=== PATIENT | male | born 1965 | race Caucasian/White ===

== ENCOUNTER 2019-10-27 13:18 | Emergency (ER) | payer MEDICAID, SELFPAY ==
[2019-10-27 13:28] VITALS: BP 123/87; PULSE 80; RESP 16; TEMP 36.7; O2SAT 97; BMI 24.4
--- NOTE | 2019-10-27 14:18 | W.ED.DENTAL ---
HPI - Dental/Oral General: Chief complaint: Dental/Oral Stated complaint: dental pain, facial and throat swelling Time Seen by Provider: 10/27/19 13:51 History of Present Illness: HPI Narrative: Patient seen by Dr. Reed yesterday for dental abscess and placed on Augmentin. Patient that his face was more swell this morning woke up decided come in says her throat hurts too. MD Complaint: tooth pain Teeth map: 1. Abscess #1920 area Onset (ago): day(s) Duration: constant Severity: moderate Severity scale (1-10): 4 Context: history of dental caries and poor dental care Associated symptoms: Reports gum swelling; Denies fever(s) Review of Systems Const: Denies: fever(s), chills or body aches Eyes: Denies: change in vision or blurry vision ENMT: Reports: throat pain, mouth pain and dental pain; Denies: nasal congestion Card: Denies: chest pain or dyspnea on exertion Resp: Denies: dyspnea, productive cough or non-productive cough GI: Denies: abdominal pain, nausea or vomiting : Denies: difficulty urinating Musc: Denies: extremity pain Skin/Breast: Denies: rash Neuro: Denies: headache(s) Psych: Denies: anxiety or depression Raymundo/Lymph: Denies: easy bruising PFSH ED PFSH: Medical History (Updated 10/27/19 @ 14:09 by MIMI Read) Cervical disc disease Chronic hepatitis C Chronic migraine Depression Spondylolisthesis of cervical region Surgical History H/O hernia repair History of cholecystectomy Family History Mother Diabetes Father Heart disease Social History (Updated 10/27/19 @ 13:35 by Jewel Mckay RN) Smoking and tobacco status: light tobacco smoker cigarettes Alcohol intake: never Substance/Drug Use: never Lives independently: Yes Household members: none Marital status: / Current occupational status: unemployed History of recent travel: No Physical Exam Const: COMMON NORMALS: no acute distress, average body habitus and patient oriented x3 HENMT: COMMON NORMALS: normocephalic HEAD & SCALP: normal to inspection and normocephalic FACE & SINUS: normal facial exam TEETH & GINGIVA IMAGES: 1. 1920s were dental abscess area is he has some mild swelling to the gum extending down around to the front he has mild lymphadenopathy to the anterior neck area throat looks normal swelling he denies bad is the picture that he showed me yesterday that he had took. Eye: COMMON NORMALS: conjunctivae normal GENERAL EYE: appearance normal, both eyes and all related structures CONJUNCTIVA: Yes conjunctivae normal Neck/C-Spine: COMMON NORMALS: no JVD Chest: COMMONS NORMALS: normal inspection of the chest Resp: COMMON NORMALS: normal respiratory effort and clear to auscultation bilaterally AUSCULTATION: clear to auscultation bilaterally Cardio: COMMON NORMALS: no JVD, regular rate and regular rhythm RATE: regular rate RHYTHM: regular rhythm GI: COMMON NORMALS: Normal to inspection, nondistended, normoactive bowel sounds present Extremity: COMMON NORMALS: normal to inspection and full ROM Neuro: COMMON NORMALS: patient oriented x3 Course Vital Signs: Vital signs: Vital Signs Temperature 98.0 F 10/27/19 13:28 Pulse Rate 80 10/27/19 13:28 Respiratory Rate 16 10/27/19 13:28 Blood Pressure 123/87 10/27/19 13:28 Pulse Oximetry 97 10/27/19 13:28 Discharge Plan Discharge Patient Disposition: Home Clinical Impression: Dental abscess Condition: Stable Prescriptions: New clindamycin HCl 300 mg capsule 300 mg PO TID 7 Days Qty: 21 RF: 0 tramadol 50 mg tablet 50 mg PO Q6H PRN (Reason: pain) Qty: 10 RF: 0 Peridex 0.12 % mouthwash 15 ml BUCCAL BID Qty: 118 RF: 0 No Action gabapentin 600 mg tablet 600 mg PO DAILY RF: 0 naproxen sodium [Aleve] 220 mg capsule 220 mg PO BID PRNRF: 0 alprazolam 2 mg tablet 2 mg PO TID PRN (Reason: anxiety) RF: 0 ibuprofen 800 mg tablet 800 mg PO TID PRNRF: 0 acetaminophen [Tylenol] 325 mg capsule 650 mg PO QID PRNRF: 0 Discharge Orders: Discharge Order (Routine); Ordered 10/27/19 Ordered By: Jony Penn Referrals: Timmy Sorto DO [Primary Care Provider] - Discharge Diet: Usual diet Discharge Activity: Resume usual activity Patient Instructions: Dental Abscess (ED) Activity Restrictions/Additional Instructions: Follow-up with medical provider as directed. Take medications as prescribed. Return to the ER or your medical provider if condition worsens. Please read and understand discharge instructions. If any questions ask please. Follow-up dentist soon as possible Coding Level of Care Code ED Service Coordinator [facility] for [facility]
[2019-10-27] MEDS: cefTRIAXone 1,000 mg SDV 1000 MG IM (14:51)
[2019-10-27 14:57] VITALS: BP 125/85; PULSE 71; RESP 16; O2SAT 97
[2019-10-27 15:10] VITALS: BP 115/93; PULSE 97; RESP 18; O2SAT 97
== END 2019-10-27 15:13 | disposition home or self-care (01) ==
PROVIDERS: Emergency Provider Nurse Practitioner Family; PCP Family Medicine
DX: K04.7 Periapical abscess without sinus (principal); Z86.19 Personal history of other infectious and parasitic diseases; F17.210 Nicotine dependence, cigarettes, uncomplicated
CPT/HCPCS: 12345; 96372; 99281; 99282; J0696

== ENCOUNTER 2019-11-10 11:48 | Emergency (ER) | payer MEDICAID, SELFPAY ==
[2019-11-10 11:57] VITALS: BMI 24.4
[2019-11-10 12:03] VITALS: BP 137/98; PULSE 115; RESP 16; TEMP 36.9; O2SAT 95
--- NOTE | 2019-11-10 12:04 | XR_ITS ---
WS: [id number] PROCEDURE: XR chest 2V* [id number] CLINICAL INFORMATION: fever COMPARISON: December 08, 2018 FINDINGS: Heart: Normal cardiac silhouette. Lungs: Lungs are clear. No consolidation or pleural fluid. Calcified granuloma left lower lobe. Bones: Normal visualized bony structures. Cholecystectomy clips. XR/XR chest 2V* [id number] IMPRESSION: Normal chest
--- NOTE | 2019-11-10 12:04 | W.ED.GENADLT ---
HPI - General Adult General: Chief complaint: General Medical Stated complaint: FEVER/ACHES/D/ABD PAIN Time Seen by Provider: 11/10/19 11:58 Source: patient Mode of arrival: ambulatory Limitations: no limitations History of Present Illness: HPI narrative: 53-year-old male who states he had a dental abscess drained little over a week ago. He states that since then he is just had some generalized body aches with low-grade fevers and nausea. States that his whole body hurts. He denies any vomiting or diarrhea. He denies any worsening or improving factors. Patient states he has had a slight cough. Associated symptoms: Reports nausea; Deny chest pain, dyspnea, headache(s) or rash Review of Systems Const: Denies: fever(s), chills, body aches or change in appetite Eyes: Denies: blurry vision or eye discomfort ENMT: Denies: throat pain or dental pain Card: Denies: chest pain Resp: Denies: dyspnea GI: Reports: nausea : Denies: dysuria Musc: Reports: extremity pain Skin/Breast: Denies: rash Neuro: Denies: headache(s) Psych: Denies: depression Raymundo/Lymph: Denies: easy bruising All/Imm: Denies: urticaria PFSH ED PFSH: Medical History (Updated 11/10/19 @ 14:03 by Dago Boykin MD) Cervical disc disease Chronic hepatitis C Chronic migraine Depression Spondylolisthesis of cervical region Surgical History H/O hernia repair History of cholecystectomy Family History Mother Diabetes Father Heart disease Social History (Updated 10/27/19 @ 13:35 by Jewel Mckay RN) Smoking and tobacco status: light tobacco smoker cigarettes Alcohol intake: never Lives independently: Yes Household members: none Marital status: / Current occupational status: unemployed History of recent travel: No Physical Exam Const: COMMON NORMALS: no acute distress, patient oriented x3 and healthy appearing HENMT: COMMON NORMALS: normocephalic and atraumatic HEAD & SCALP: normocephalic and atraumatic Eye: COMMON NORMALS: Equal, round and reactive pupils present and EOMs intact bilaterally PUPIL: Yes Equal, round and reactive pupils present Neck/C-Spine: COMMON NORMALS: full ROM and supple Chest: COMMONS NORMALS: normal inspection of the chest and normal palpation of entire chest wall Resp: COMMON NORMALS: normal respiratory effort, No retractions, No use of accessory muscles and clear to auscultation bilaterally AUSCULTATION: clear to auscultation bilaterally Cardio: COMMON NORMALS: regular rate, regular rhythm and No murmurs present (Cardio) RATE: regular rate RHYTHM: regular rhythm GI: COMMON NORMALS: Normal to inspection, nondistended, normoactive bowel sounds present, Soft to palpation, non-tender and no masses PALPATION: Yes Soft to palpation Extremity: COMMON NORMALS: normal to inspection and full ROM Neuro: COMMON NORMALS: patient oriented x3, moves all extremities and no focal motor deficits Psych: COMMON NORMALS: mental status grossly normal, Normal thought process present and cooperative THOUGHT PROCESS: Normal thought process present Skin: COMMON NORMALS: no rashes or lesions noted and no wounds GENERAL SKIN EXAM: no rashes or lesions noted Course Vital Signs: Vital signs: Vital Signs Temperature 98.5 F 11/10/19 12:03 Pulse Rate 108 H 11/10/19 12:47 Respiratory Rate 19 H 11/10/19 12:47 Blood Pressure 133/94 11/10/19 12:47 Pulse Oximetry 96 11/10/19 12:47 MDM - General Adult MDM Narrative: Medical decision making narrative: Patient presents here with an infection colitis. Patient is well-appearing here and abdominal exam is benign. Patient is stable for discharge will place him on Cipro and Flagyl pain meds. He is to follow-up his primary doctor in 5 to 7 days return if worsening. Lab Data: Labs: Lab Results 11/10/19 11/10/19 Range/Units 12:16 12:16 WBC 14.4 H (4.0-10.0) 10^3/ uL RBC 5.93 H (4.1-5.3) 10^6/u L Hgb 18.7 H (11.7-16.6) g/dL Hct 54.7 H (42.0-52.0) % MCV 92.2 (80-94) fL MCH 31.5 (28.0-34.0) pg MCHC 34.2 (30.0-36.0) g/dL RDW 12.0 L (12.1-15.1) % Plt Count 261 (130-400) 10^3/c mm MPV 9.6 (7.4-10.4) fL Neut % (Auto) 80.9 % Lymph % (Auto) 9.5 % [place] % (Auto) 8.5 % Eos % (Auto) 0.5 % Baso % (Auto) 0.3 % Neut # (Auto) 11.66 H (1.8-7.7) 10^3/u L Lymph # (Auto) 1.4 (0.8-4.8) 10^3/u L [place] # (Auto) 1.2 H (0.2-0.9) 10^3/u L Eos # (Auto) 0.1 (0.0-0.8) 10^3/u L Baso # (Auto) 0.0 (0.0-0.1) 10^3/u L Nucleated RBC % (a uto) 0 % Nucleated RBCs # 0.0 /100WBC Sodium 137 (136-145) mmol/L Potassium 4.2 (3.5-5.1) mmol/L Chloride 103 (98-107) mmol/L Carbon Dioxide 24 (22-29) mmol/L Anion Gap 14.2 (5-19) BUN 11 (6-20) mg/dL Creatinine 0.8 (0.7-1.2) mg/dL GFR Calculation 101.9 (90-130) mL/min Glucose 112 (65-115) mg/dL Calculated Osmolal ity 281 L (285-295) mOsm/k g Calcium 9.0 (8.5-10.5) mg/dL Total Bilirubin 0.5 (0.15-1.2) mg/dL AST 21 (0-40) U/L ALT 27 (0-41) U/L Alkaline Phosphata se 84 (40-130) IU/L Total Protein 8.3 (6.6-8.7) g/dL Albumin 4.5 (3.5-5.2) g/dL Globulin 3.8 (1.3-4.6) g/dL Lipase 31 (13-60) U/L Imaging Data^: CT Abd/Pel: Radiologist's impression: [address] [address] [address] Scan Report Signed Patient: Guille Russ Unit #: [id number] : 1965 Age/Sex: 53 / M ADM Date: 11/10/19 Loc: ER Room/Bed: Attending Dr: Ordering Provider/Ordering MD: Dago Boykin MD Date of Service: 11/10/19 Procedure(s): CT chest abd pel w con* Accession Number(s): [id number] Report Number: [id number] PROCEDURE INFORMATION: Exam: CT Chest With Contrast Exam date and time: 11/10/2019 12:45 PM Age: 53 years old Clinical indication: Abdominal pain; Generalized; Chest pain; Type not specified; Prior surgery; Surgery type: Gb, hernia TECHNIQUE: Imaging protocol: Computed tomography of the chest with intravenous contrast. Radiation optimization: All CT scans at this facility use at least one of these dose optimization techniques: automated exposure control; mA and/or kV adjustment per patient size (includes targeted exams where dose is matched to clinical indication); or iterative reconstruction. Contrast material: OMNI 300; Contrast volume: 95 ml; Contrast route: INTRAVENOUS (IV); COMPARISON: CT abdomen pelvis w con* [id number] 09/09/2017 3:36 PM RADIATION DOSE METRICS: Total DLP (mGy-cm): 1243.05 FINDINGS: Lungs: Unremarkable. No consolidation. No masses. Pleural space: Unremarkable. No pneumothorax. No pleural effusion. Heart: Unremarkable. No cardiomegaly. No pericardial effusion. Aorta: Unremarkable. No aortic aneurysm. Lymph nodes: Unremarkable. No enlarged lymph nodes. Bones/joints: Degenerative change is identified in the spine. There is no evidence for acute fracture or malalignment. Soft tissues: Unremarkable. IMPRESSION: There are no acute concerning abnormalities. PROCEDURE INFORMATION: Exam: CT Abdomen And Pelvis With Contrast Exam date and time: 11/10/2019 12:45 PM Age: 53 years old Clinical indication: Abdominal pain; Generalized; Chest pain; Type not specified; Prior surgery; Surgery type: Gb, hernia TECHNIQUE: Imaging protocol: Computed tomography of the abdomen and pelvis with intravenous contrast. Radiation optimization: All CT scans at this facility use at least one of these dose optimization techniques: automated exposure control; mA and/or kV adjustment per patient size (includes targeted exams where dose is matched to clinical indication); or iterative reconstruction. Contrast material: OMNI 300; Contrast volume: 95 ml; Contrast route: INTRAVENOUS (IV); COMPARISON: CT abdomen pelvis w con* [id number] 09/09/2017 3:36 PM RADIATION DOSE METRICS: Total DLP (mGy-cm): 1243.05 FINDINGS: Liver: Normal. No mass. Gallbladder and bile ducts: There has been a cholecystectomy. Pancreas: Normal. No ductal dilation. Spleen: Normal. No splenomegaly. Adrenals: Normal. No mass. Kidneys and ureters: Normal. No hydronephrosis. Stomach and bowel: There is wall thickening of the ascending and hepatic flexures of the colon and also of the distal descending and sigmoid colon. There are colon diverticula. No bowel obstruction. Appendix: No evidence of appendicitis. Intraperitoneal space: Unremarkable. No free air. No significant fluid collection. Vasculature: Unremarkable. No abdominal aortic aneurysm. Lymph nodes: Unremarkable. No enlarged lymph nodes. Bladder: Unremarkable as visualized. Reproductive: Unremarkable as visualized. Bones/joints: Degenerative change is identified in the spine. There is no evidence for acute fracture or malalignment. Soft tissues: Unremarkable. CT/CT chest abd pel w con* IMPRESSION: There is multifocal colitis in the ascending, hepatic flexure, distal descending and sigmoid colons. Some of this may represent diverticulitis. Follow-up is recommended to ensure expected resolution. Discharge Plan Discharge Patient Disposition: Home Clinical Impression: Colitis Condition: Stable Prescriptions: [place] 5-325 mg tablet 1 tab PO Q6H PRN (Reason: pain) Qty: 14 RF: 0 ondansetron 4 mg tablet,disintegrating 4 mg PO Q6H PRN (Reason: nausea and vomiting) Qty: 14 RF: 0 Cipro 500 mg tablet 500 mg PO BID Qty: 20 RF: 0 Flagyl 500 mg tablet 500 mg PO TID Qty: 30 RF: 0 No Action gabapentin 600 mg tablet 600 mg PO BID RF: 0 naproxen sodium [Aleve] 220 mg capsule 220 mg PO BID PRN (Reason: Pain) RF: 0 alprazolam 2 mg tablet 2 mg PO QID PRN (Reason: anxiety) RF: 0 ibuprofen 800 mg tablet 800 mg PO PRN RF: 0 tramadol 50 mg tablet 50 mg PO Q6H PRN (Reason: pain) Qty: 10 RF: 0 amoxicillin 500 mg Capsule 500 mg PO TID RF: 0 aspirin 325 mg Tablet 325 mg PO PRN RF: 0 Tylenol Extra Strength 500 mg Tablet 1,000 mg PO PRN RF: 0 dicyclomine 10 mg Capsule 10 mg PO QID PRN (Reason: unknown) RF: 0 Augmentin 875-125 mg Tablet 1 tab PO BID RF: 0 Pepcid AC 1 tab PO PRN RF: 0 Discharge Orders: Discharge Order (Routine); Ordered 11/10/19 Ordered By: Dago Boykin Referrals: Timmy Sorto, [Primary Care Provider] - 4-7 days Discharge Diet: Advance as tolerated Discharge Activity: Resume usual activity Patient Instructions: Infectious Colitis (ED) Coding Level of Care Code ED Entertainment Musician for [facility] Fwluis eduardo Exam Comprehensive
[2019-11-10 12:26] LABS: Basophils % 0.3 %; Eosinophils # 0.1 10^3/uL (0.0-0.8); Eosinophils % 0.5 %; Hematocrit 54.7 % (42.0-52.0); Hemoglobin 18.7 g/dL (11.7-16.6); Lymphocytes # 1.4 10^3/uL (0.8-4.8); Lymphocytes % 9.5 %; Mean Corpuscular HGB Conc 34.2 g/dL (30.0-36.0); Mean Corpuscular Hemoglobin 31.5 pg (28.0-34.0); Mean Corpuscular Volume 92.2 fL (80-94); Mean Platelet Volume 9.6 fL (7.4-10.4); Monocytes # 1.2 10^3/uL (0.2-0.9); Monocytes % 8.5 %; Neutrophils # 11.66 10^3/uL (1.8-7.7); Neutrophils % 80.9 %; Nucleated Red Blood Cells % 0 %; Platelet Count 261 10^3/cmm (130-400); Red Blood Count 5.93 10^6/uL (4.1-5.3); White Blood Count 14.4 10^3/uL (4.0-10.0)
[2019-11-10 12:37] VITALS: RESP 18; O2SAT 96
[2019-11-10] MEDS: morphine 4 mg/mL SDV 1 mL IVP (12:37)
[2019-11-10] MEDS: ondansetron 2 mg/ML SDV 2 mL 4 MG IVP (12:41)
--- NOTE | 2019-11-10 12:42 | CTR_ITS ---
PROCEDURE INFORMATION: Exam: CT Chest With Contrast Exam date and time: 11/10/2019 12:45 PM Age: 53 years old Clinical indication: Abdominal pain; Generalized; Chest pain; Type not specified; Prior surgery; Surgery type: Gb, hernia TECHNIQUE: Imaging protocol: Computed tomography of the chest with intravenous contrast. Radiation optimization: All CT scans at this facility use at least one of these dose optimization techniques: automated exposure control; mA and/or kV adjustment per patient size (includes targeted exams where dose is matched to clinical indication); or iterative reconstruction. Contrast material: OMNI 300; Contrast volume: 95 ml; Contrast route: INTRAVENOUS (IV); COMPARISON: CT abdomen pelvis w con* [id number] 09/09/2017 3:36 PM RADIATION DOSE METRICS: Total DLP (mGy-cm): 1243.05 FINDINGS: Lungs: Unremarkable. No consolidation. No masses. Pleural space: Unremarkable. No pneumothorax. No pleural effusion. Heart: Unremarkable. No cardiomegaly. No pericardial effusion. Aorta: Unremarkable. No aortic aneurysm. Lymph nodes: Unremarkable. No enlarged lymph nodes. Bones/joints: Degenerative change is identified in the spine. There is no evidence for acute fracture or malalignment. Soft tissues: Unremarkable. IMPRESSION: There are no acute concerning abnormalities. PROCEDURE INFORMATION: Exam: CT Abdomen And Pelvis With Contrast Exam date and time: 11/10/2019 12:45 PM Age: 53 years old Clinical indication: Abdominal pain; Generalized; Chest pain; Type not specified; Prior surgery; Surgery type: Gb, hernia TECHNIQUE: Imaging protocol: Computed tomography of the abdomen and pelvis with intravenous contrast. Radiation optimization: All CT scans at this facility use at least one of these dose optimization techniques: automated exposure control; mA and/or kV adjustment per patient size (includes targeted exams where dose is matched to clinical indication); or iterative reconstruction. Contrast material: OMNI 300; Contrast volume: 95 ml; Contrast route: INTRAVENOUS (IV); COMPARISON: CT abdomen pelvis w con* [id number] 09/09/2017 3:36 PM RADIATION DOSE METRICS: Total DLP (mGy-cm): 1243.05 FINDINGS: Liver: Normal. No mass. Gallbladder and bile ducts: There has been a cholecystectomy. Pancreas: Normal. No ductal dilation. Spleen: Normal. No splenomegaly. Adrenals: Normal. No mass. Kidneys and ureters: Normal. No hydronephrosis. Stomach and bowel: There is wall thickening of the ascending and hepatic flexures of the colon and also of the distal descending and sigmoid colon. There are colon diverticula. No bowel obstruction. Appendix: No evidence of appendicitis. Intraperitoneal space: Unremarkable. No free air. No significant fluid collection. Vasculature: Unremarkable. No abdominal aortic aneurysm. Lymph nodes: Unremarkable. No enlarged lymph nodes. Bladder: Unremarkable as visualized. Reproductive: Unremarkable as visualized. Bones/joints: Degenerative change is identified in the spine. There is no evidence for acute fracture or malalignment. Soft tissues: Unremarkable. CT/CT chest abd pel w con* IMPRESSION: There is multifocal colitis in the ascending, hepatic flexure, distal descending and sigmoid colons. Some of this may represent diverticulitis. Follow-up is recommended to ensure expected resolution. Radiation Dose CTDIVOL = (mGy): DLP = 1243.05~1243.05 (mGy-cm)
[2019-11-10 12:44] LABS: Alanine Aminotransferase 27 U/L (0-41); Albumin Level 4.5 g/dL (3.5-5.2); Alkaline Phosphatase 84 IU/L (40-130); Anion Gap 14.2 (5-19); Aspartate Amino Transferase 21 U/L (0-40); Blood Urea Nitrogen 11 mg/dL (6-20); Carbon Dioxide 24 mmol/L (22-29); Chloride 103 mmol/L (98-107); Globulin 3.8 g/dL (1.3-4.6); Glomerular Filtration Rate 101.9 mL/min (90-130); Glucose 112 mg/dL (65-115); Lipase 31 U/L (13-60); Osmolality Calculated 281 mOsm/kg (285-295); Potassium 4.2 mmol/L (3.5-5.1); Sodium 137 mmol/L (136-145); Total Bilirubin 0.5 mg/dL (0.15-1.2); Total Protein 8.3 g/dL (6.6-8.7)
[2019-11-10] MEDS: sodium chloride 0.9% 1,000 ML 999 ML IV (12:44)
[2019-11-10 12:47] VITALS: BP 133/94; PULSE 108; RESP 19; O2SAT 96
[2019-11-10] MEDS: iohexol 300 mg/mL 100 mL Btl 95 ML IV (13:08)
[2019-11-10 14:04] VITALS: BP 130/87; PULSE 104; PULSE 112; RESP 19; O2SAT 100; O2SAT 99
[2019-11-10 14:15] VITALS: BP 130/87; PULSE 99; RESP 18; O2SAT 93
--- NOTE | 2019-11-10 14:19 | PC.NURSE ---
Patient discharged before hydrocodone order was seen by nurse. Upon discharge patient stated pain had decreased.
== END 2019-11-10 14:15 | disposition home or self-care (01) ==
PROVIDERS: Emergency Provider Emergency Medicine; PCP Family Medicine
DX: K52.9 Noninfective gastroenteritis and colitis, unspecified (principal); Z79.82 Long term (current) use of aspirin; Z86.19 Personal history of other infectious and parasitic diseases; F17.210 Nicotine dependence, cigarettes, uncomplicated
CPT/HCPCS: 12345; 71046; 71260; 74177; 80053; 83690; 85025; 96361; 96374; 96375; 99282; 99283; J2270; J2405; J7030; Q9967

== ENCOUNTER → 2019-11-22 08:27 | Outpatient (BNVA) | payer MEDICAID, SELFPAY | PROVIDERS: PCP Family Medicine; Referring Provider Specialist; Visit Provider Anesthesiology Pain Medicine | DX: M54.41 Lumbago with sciatica, right side (principal); M54.9 Dorsalgia, unspecified; M54.2 Cervicalgia; F17.210 Nicotine dependence, cigarettes, uncomplicated; Z79.891 Long term (current) use of opiate analgesic | CPT/HCPCS: 99205 ==

== ENCOUNTER → 2019-12-27 13:52 | Outpatient (BNVA) | payer MEDICAID, SELFPAY | PROVIDERS: PCP Family Medicine; Visit Provider Anesthesiology Pain Medicine | DX: M47.816 Spondylosis without myelopathy or radiculopathy, lumbar region (principal); M54.9 Dorsalgia, unspecified; F17.210 Nicotine dependence, cigarettes, uncomplicated; Z79.891 Long term (current) use of opiate analgesic | CPT/HCPCS: 64493; 64494; 64495; J3490 ==

== ENCOUNTER → 2020-01-10 09:56 | Outpatient (BNVA) | payer MEDICAID, SELFPAY | PROVIDERS: PCP Family Medicine; Visit Provider Anesthesiology Pain Medicine | DX: M51.16 Intervertebral disc disorders with radiculopathy, lumbar region (principal); M47.816 Spondylosis without myelopathy or radiculopathy, lumbar region; M54.9 Dorsalgia, unspecified; M50.90 Cervical disc disorder, unspecified, unspecified cervical region; M47.812 Spondylosis without myelopathy or radiculopathy, cervical region; F17.210 Nicotine dependence, cigarettes, uncomplicated | CPT/HCPCS: 99213 ==

== ENCOUNTER → 2020-01-11 11:02 | Outpatient (BNVA) | payer MEDICAID, SELFPAY | PROVIDERS: PCP Family Medicine; Visit Provider Licensed Practical Nurse | DX: M50.90 Cervical disc disorder, unspecified, unspecified cervical region (principal); M43.12 Spondylolisthesis, cervical region; M51.16 Intervertebral disc disorders with radiculopathy, lumbar region; F17.210 Nicotine dependence, cigarettes, uncomplicated | CPT/HCPCS: 99213 ==

== ENCOUNTER → 2020-01-26 09:51 | Outpatient (BNVA) | payer MEDICAID, SELFPAY | PROVIDERS: PCP Family Medicine; Visit Provider Licensed Practical Nurse | DX: M43.12 Spondylolisthesis, cervical region (principal); M50.90 Cervical disc disorder, unspecified, unspecified cervical region; M51.16 Intervertebral disc disorders with radiculopathy, lumbar region; F17.210 Nicotine dependence, cigarettes, uncomplicated | CPT/HCPCS: 99214 ==

== ENCOUNTER 2020-02-15 13:30 | Outpatient (CLI) | payer MEDICAID, SELFPAY ==
--- NOTE | 2020-02-15 16:00 | MR_ITS ---
WS: [id number] MRI CERVICAL SPINE HISTORY: M43.12 - Spondylolisthesis, cervical region COMPARISON: 02/17/2019 Less than 2 mm retrolisthesis of C3. No fracture or marrow edema. Signal within the cervical cord is normal. Visualized posterior fossa is unremarkable. Craniocervical junction, C1 and C2 relationship, odontoid process and soft tissues are normal. C2-C3: Normal. C3-C4: Mild osteophytic ridging and central disc protrusion. No stenosis. C4-C5: Mild osteophytic ridging and central disc protrusion without stenosis. C5-C6: Shallow central disc protrusion without stenosis. C6-C7: Minimal osteophytic ridging with a central annular fissure and disc protrusion. No stenosis. C7-T1: Mild osteophytic ridging. Facet joint arthritis on the RIGHT encroaching into the posterior la teral thecal sac. Slightly greater facet joint arthritis on the RIGHT with effacement of the CSF. Paraspinal soft tissue are normal. MR/MR cervical spin wo con* [id number] IMPRESSION: 1. No significant central stenosis. No large disc protrusions. 2. Mild facet joint arthritis encroaching into the posterior lateral thecal sa c causing mild foraminal narrowing at C7-T1, greatest on the RIGHT. 3. Shallow disc protrusions and osteophytes from C3-4 to C6-7. No high-grade s tenosis.
--- NOTE | 2020-02-15 16:45 | MR_ITS ---
WS: [id number] MRI LUMBAR SPINE NONCONTRAST HISTORY: M51.16 - Intervertebral disc disorders with radiculopathy, lumbar region COMPARISON: 02/17/2019. TECHNIQUE: Sagittal and axial multisequence imaging is submitted. Same vertebral body numbering pattern as on the prior study of 02/17/2019 will be used today. Normal posterior lumbar alignment. No marrow edema or fractures. Disc spaces and vertebral body heights are well-preserved. Mild disc space narrowing and desiccation at L2-3. Conus terminates normally at L1. L1-L2: Normal. L2-L3: Normal. L3-L4: Again noted is a shallow RIGHT foraminal disc protrusion with minimal contact on the L3 nerve root in the foramen. Mild narrowing of the RIGHT foramen. L4-L5: Moderate size central disc protrusion with annular fissure causing mild contact and minimal di splacement of the L5 nerve roots. Very similar to the prior examination. Mild narrowing of the centra l canal and subarticular recesses bilaterally similar to the prior study. L5-S1: Broad-based annular disc bulging with a very tiny central disc protrusion. Small disc osteophy te contact and annular fissure in the far lateral LEFT foramen. Subcentimeter LEFT renal cyst. MR/MR lumbar spine wo con* [id number] IMPRESSION: 1. Moderate size central disc protrusion with annular tear at L4-5 causing mil d central and bilateral subarticular recess narrowing. Similar to the prior deb dy. Disc does appear to contact the L5 nerve roots bilaterally. 2. Shallow RIGHT foraminal disc protrusion at L3-4 contacting the L3 nerve horacio t. 3. Mild LEFT foraminal narrowing at L5-S1 due to disc osteophyte disease.
== END 2020-02-15 13:31 | disposition home or self-care (01) ==
LOC: RADSHAW 13:32
PROVIDERS: PCP Family Medicine; Visit Provider Licensed Practical Nurse
DX: M51.16 Intervertebral disc disorders with radiculopathy, lumbar region (principal); M43.12 Spondylolisthesis, cervical region; M51.26 Other intervertebral disc displacement, lumbar region; M25.78 Osteophyte, vertebrae
CPT/HCPCS: 72141; 72148

== ENCOUNTER → 2020-02-16 14:30 | Outpatient (BNVA) | payer MEDICAID, SELFPAY | PROVIDERS: PCP Family Medicine; Visit Provider Anesthesiology Pain Medicine | DX: M51.16 Intervertebral disc disorders with radiculopathy, lumbar region (principal); M47.816 Spondylosis without myelopathy or radiculopathy, lumbar region; M54.9 Dorsalgia, unspecified; M50.90 Cervical disc disorder, unspecified, unspecified cervical region; M47.812 Spondylosis without myelopathy or radiculopathy, cervical region; F17.210 Nicotine dependence, cigarettes, uncomplicated | CPT/HCPCS: 99213 ==

== ENCOUNTER → 2020-04-13 12:42 | Outpatient (BNVA) | payer MEDICAID, SELFPAY | PROVIDERS: PCP Family Medicine; Visit Provider Anesthesiology Pain Medicine | DX: M51.16 Intervertebral disc disorders with radiculopathy, lumbar region (principal); M54.9 Dorsalgia, unspecified; F17.210 Nicotine dependence, cigarettes, uncomplicated; Z79.891 Long term (current) use of opiate analgesic | CPT/HCPCS: 64483; 64484; J1100; J3490 ==

== ENCOUNTER → 2020-04-24 13:02 | Outpatient (BNVA) | payer MEDICAID, SELFPAY | PROVIDERS: PCP Family Medicine; Visit Provider Anesthesiology Pain Medicine | DX: M51.16 Intervertebral disc disorders with radiculopathy, lumbar region (principal); M47.816 Spondylosis without myelopathy or radiculopathy, lumbar region; M50.90 Cervical disc disorder, unspecified, unspecified cervical region; M47.812 Spondylosis without myelopathy or radiculopathy, cervical region; M54.9 Dorsalgia, unspecified; F17.210 Nicotine dependence, cigarettes, uncomplicated | CPT/HCPCS: 99214 ==

== ENCOUNTER → 2020-05-01 15:11 | Outpatient (BNVA) | payer MEDICAID, SELFPAY | PROVIDERS: PCP Family Medicine; Referring Provider Anesthesiology Pain Medicine; Visit Provider Orthopaedic Surgery | DX: M54.5 Low back pain (principal) | CPT/HCPCS: 72114 ==

== ENCOUNTER → 2020-05-17 11:40 | Outpatient (BNVA) | payer MEDICAID, SELFPAY | PROVIDERS: PCP Family Medicine; Visit Provider Orthopaedic Surgery | DX: M43.12 Spondylolisthesis, cervical region (principal) | CPT/HCPCS: 72050 ==

== ENCOUNTER → 2020-05-31 11:25 | Outpatient (BNVA) | payer MEDICAID, SELFPAY | PROVIDERS: PCP Family Medicine; Visit Provider Orthopaedic Surgery | DX: Z01.818 Encounter for other preprocedural examination (principal); M51.16 Intervertebral disc disorders with radiculopathy, lumbar region | CPT/HCPCS: 87635 ==

== ENCOUNTER 2020-06-04 06:56 | Day surgery (SDC) | payer MEDICAID, SELFPAY ==
[2020-05-28 13:29] VITALS: BMI 23.6
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
--- NOTE | 2020-06-04 | XR_ITS ---
WS: [id number] INTRAOPERATIVE TECHNIQUE: 4 Spot fluoroscopic images for intraoperative purposes. FLUOROSCOPY TIME: 14.4 seconds CLINICAL INFORMATION: MIS DECOMPRESSION L4/L5 L5/S1 COMPARISON: None. FINDINGS: Localization marker over the dorsal L4-5 interspace. Localization marker over the L5 vertebral body o n the last image. XR/XR lumbar spine 2-3V* [id number] IMPRESSION: Images obtained for intraoperative purposes.
--- NOTE | 2020-06-04 | SCC_ITS ---
Procedure Done: 1. Bilateral L4/5 laminectomy with partial facetectomies 2. Bilateral L5/S1 laminectomies with partial facetectomies 14.4 seconds of fluoroscopic guidance, for a cumulative dose of 3.27 mGy, was provided to Dr. Rivera by the radiology department. C-arm images of the lumbar spine were saved for the patient's permanent record. [facility]
[2020-06-04 07:10] VITALS: BP 129/89; PULSE 79; RESP 18; TEMP 36.1; O2SAT 98
--- NOTE | 2020-06-04 08:12 | W.PM.OPSUD ---
Surgery/Procedure H&P Update DATE OF PROCEDURE: June 04, 2020 DATE H&P PERFORMED: 05/17/20 H&P UPDATE INFORMATION: I have reviewed H&P completed within last 30 days and I have examined patient prior to procedure PREOP DIAGNOSIS: lumbar stenosis PLANNED PROCEDURE: Operation Date: 06/04/20 08:40 Proposed Procedures p MIS decompression bilateral of L4/5 L5/S1 M48.062 [id number](Bilateral) - Owen Rivera DO
[2020-06-04] MEDS: sodium chloride 0.9% 1,000 ML 30 ML IV (08:29)
--- NOTE | 2020-06-04 08:39 | P.ANESUD_ITS ---
Pre-Anesthetic Update Pre-Anesthetic Assessment: Date of Surgery/Procedure: 06/04/20 Preop Blanche gnosis: lumbar stenosis Proposed Procedure: Operation Date: 06/04/20 08:40 Proposed Procedures p MIS decompression bilateral of L4/5 L5/S1 M48.062 [id number](Bilateral) - Owen Rivera, DO Any changes to Pre-Anesthetic Assessment?: No Last Intake: Intake Last Liquid Date 06/03/20 Last Liquid Time 22:00 Last Solid Date 06/03/20 Last Solid Time 20:00 Vitals: Temperature 96.9 F L 06/04/20 07:10 Temperature Source Temporal Artery S can 06/04/20 07:10 Pulse Rate 79 06/04/20 07:10 Pulse Rhythm 06/04/20 07:18 Pulse Strength 3+ Normal 06/04/20 07:18 Respiratory Rate 18 06/04/20 07:10 Blood Pressure 129/89 06/04/20 07:10 Blood Pressure Lorie n 102 06/04/20 07:10 Pulse Oximetry 98 06/04/20 07:10 Oxygen Delivery Me thod 06/04/20 07:10 Exam: Pre-Anes Outpt Exam: alert, oriented x 3, clear to auscultation bilaterally and regular rate & rhythm Cardiac Studies: No Data to Display
--- NOTE | 2020-06-04 10:16 | P.OP_ITS ---
Operative Report Date of procedure: June 04, 2020 Pre-op Diagnosis: lumbar stenosis Post-op diagnosis: same Procedure Done: 1. Bilateral L4/5 laminectomy with partial facetectomies 2. Bilateral L5/S1 laminectomies with partial facetectomies Surgeon: Owen Rivera Anesthesia: General Estimated blood loss (mL): 5 Condition: stable Disposition: PACU Procedure: 1. Bilateral L4/5 laminectomy with partial facetectomies 2. Bilateral L5/S1 laminectomies with partial facetectomi Patient is brought to the operative suite. After undergoing anesthesia they are placed in the supine position. All areas of impingement are well padded. Patient is then prepped and draped in the normal sterile fashion. A skin incision is made over the L4/5/S1 level. This is confirmed under c-arm guidance. A series of dilators are passed and the tubular retractor is docked on the L4 lamina. A bovie is used to clear the soft tissue off the lamina and the L 4/5 facet joint. A high speed wesley is then used to perform the laminectomy and take down the medial aspect of the L 4/5 facet joint. A kerrison rongeure was then used to take down the remaining lamina and smooth the edged of the laminectomy up to the point where the ligamentum flavum attaches. Attention was then brought to the medial aspect of the facet joint. The remaining medial aspect of the superior and inferior aspect of the facet joint were taken down with the kerrison from the pedicle of L4 to L 5. The facet joint had significant hypertrophy. Attention was then brought to the Ligamentum Flavum. The ligament was taken down from the lamina of L4 to L5 and out medially to the remaining facet joint. The ligament was very thick. The dura was then exposed. The dura was in good repair. The L4 nerve was then traced with a curette out the L4/5 foramen and found to be adequately decompressed. The L5 nerve was traced with a curette around the L5 pedicle. The lateral recess was opened with a kerrison helping to further decompress the L5 nerve. The tubular retractor was then tilted to the contralateral side. The bovie was used to take down the soft tissue on the spinous process. The high speed wesley was used to take down the spinous process and then the contralateral lamina of L4. The kerrison rongeur was used to take down the remaining lamina to the point where the ligamentum flavum attached and the ligamentum flavum was taken down from L4 to L5. The kerrison rongeur was then used to reach across and take down the medial aspect of the contralateral L4/5 facet joint.The currete was used to trace the contralateral L4 nerve out the L4/5 foramen to make sure it was decompressed adequatesly and the L5 was traced around the L5 pedicle. The lateral recess was opened further with the kerrison to ensure the L5 is adequately decompressed. attention was then brought to the L5/S1 level: A series of dilators are passed and the tubular retractor is docked on the L4 lamina. A bovie is used to clear the soft tissue off the lamina and the L 5/S1 facet joint. A high speed wesley is then used to perform the laminectomy and take down the medial aspect of the L 5/S1 facet joint. A kerrison rongeure was then used to take down the remaining lamina and smooth the edged of the laminectomy up to the point where the ligamentum flavum attaches. Attention was then brought to the medial aspect of the facet joint. The remaining medial aspect of the superior and inferior aspect of the facet joint were taken down with the kerrison from the pedicle of L5 to S1. The facet joint had significant hypertrophy. Attention was then brought to the Ligamentum Flavum. The ligament was taken down from the lamina of L5 to S1 and out medially to the remaining facet joint. The ligament was very thick. The dura was then exposed. The dura was in good repair. The L5 nerve was then traced with a curette out the L5/S1 foramen and found to be adequately decompressed. The S1 nerve was traced with a curette around the S1 pedicle. The lateral recess was opened with a kerrison helping to further decompress the L5 nerve. The tubular retractor was then tilted to the contralateral side. The bovie was used to take down the soft tissue on the spinous process. The high speed wesley was used to take down the spinous process and then the contralateral lamina of L5. The kerrison rongeur was used to take down the remaining lamina to the point where the ligamentum flavum attached and the ligamentum flavum was taken down from L5 to S1. The kerrison rongeur was then used to reach across and take down the medial aspect of the contralateral L5/S1 facet joint.The currete was used to trace the contralateral L5 nerve out the L5/S1 foramen to make sure it was decompressed adequatesly and the S1 was traced around the S1 pedicle. The lateral recess was opened further with the kerrison to ensure the S1 is adequa tely decompressed. Wound is then irrigated copiously with saline and surgiflo is used to stop any bleeding. The tubular retractor is removed and the wound is closed with vicryl and monocryl suture. Glue is then used to protect the wound. A sterile dressing is then placed. Patient was then placed in the supine position and transferred to the PACU in stable condition.
[2020-06-04 10:20] VITALS: BP 149/94; PULSE 89; RESP 16; TEMP 36.2; O2SAT 97
[2020-06-04 10:25] VITALS: BP 99/76; PULSE 68; RESP 18; O2SAT 98
[2020-06-04] MEDS: ondansetron 2 mg/ML SDV 2 mL 4 MG IVP (10:28)
[2020-06-04 10:30] VITALS: BP 119/86; PULSE 63; RESP 17; TEMP 36.5; TEMP 36.6; O2SAT 98
[2020-06-04 10:41] VITALS: BP 93/58; PULSE 54; RESP 16; TEMP 36.5; O2SAT 100
[2020-06-04 11:10] VITALS: BP 112/73; PULSE 56; RESP 18; TEMP 36.4; O2SAT 99
--- NOTE | 2020-06-04 12:29 | ANE.PACU2 ---
Inpatient post-anesthesia follow up: Airway intact: Yes Vital signs: Temperature 97.6 F Pulse Rate 56 Respiratory Rate 18 Blood Pressure 112/73 Pulse Oximetry 99 Oxygen Delivery Me thod Room Air Oxygen Flow Rate 8 Fraction of Inspir ed Oxygen Hydration adequate: Yes Nausea and vomiting: No Pain level: 2 Mental status: Baseline
== END 2020-06-04 11:17 | disposition home or self-care (01) ==
PROVIDERS: PCP Family Medicine; Visit Provider Orthopaedic Surgery
PROC: (CPT 63005; principal; 2020-06-04 08:40)
DX: M48.061 Spinal stenosis, lumbar region without neurogenic claudication (principal); F17.210 Nicotine dependence, cigarettes, uncomplicated; K21.9 Gastro-esophageal reflux disease without esophagitis; F32.9 Major depressive disorder, single episode, unspecified; Z86.19 Personal history of other infectious and parasitic diseases
CPT/HCPCS: 63047; 63048; 72100; 76000; 96365; J0690; J1100; J2405; J2704; J2710; J3010; J3490; J7030

== ENCOUNTER → 2020-07-19 11:09 | Outpatient (BNVA) | payer MEDICAID, SELFPAY | PROVIDERS: PCP Family Medicine; Visit Provider Orthopaedic Surgery | DX: M48.062 Spinal stenosis, lumbar region with neurogenic claudication (principal); Z98.890 Other specified postprocedural states | CPT/HCPCS: 72100 ==

== ENCOUNTER 2020-11-20 15:15 | Emergency (ER) | payer MEDICAID, SELFPAY ==
[2020-11-20 15:22] VITALS: BP 136/93; PULSE 106; RESP 15; TEMP 37.4; O2SAT 96; BMI 23.0
--- NOTE | 2020-11-20 15:36 | W.ED.ANIMALB ---
HPI - Animal Bite General: Chief Complaint: Animal Bite Stated Complaint: ALLERGIC REACTION:RED WASP STING;DIFF BREATHING Time Seen by Provider: 11/20/20 15:36 History of Present Illness: HPI narrative: Patient is a 55-year-old male that comes to the ED with allergic reaction while staying. Approximately an hour and a half ago patient was stung by a wasp on the left side of her mouth. He now has lip and left facial swelling along with some chest tightness and shortness of breath. He also describes having some throat tightness/swelling. Patient says he is allergic to wasp stings and has had this happen in the past. Patient did not take anything before coming here to the ED. He does not currently have an EpiPen Associated symptoms: Deny chills, fever(s) or headache(s) Review of Systems Const: Denies: fever(s), chills or fatigue Eyes: Denies: change in vision or eye discomfort ENMT: Reports: swelling of lips/tongue (lip swelling); Denies: throat pain, odynophagia, nasal discharge or nasal congestion Card: Reports: other (chest tightness); Denies: chest pain, palpitations, edema, swelling of feet/ankles, dyspnea on exertion or orthopnea Resp: Reports: dyspnea; Denies: productive cough or non-productive cough GI: Denies: abdominal pain, nausea, vomiting, diarrhea, constipation or hematochezia : Denies: flank pain, difficulty urinating, dysuria or hematuria Musc: Denies: neck pain, back pain or extremity swelling Skin/Breast: Denies: rash or new lesions Neuro: Denies: headache(s), numbness in extremities or weakness in extremities All/Imm: Reports: tongue swelling and facial swelling (left maxillary swelling) [facility] ED PFSH: Medical History Cervical disc disease Chronic hepatitis C Chronic migraine Depression Lumbar disc disease with radiculopathy Spondylolisthesis of cervical region Surgical History H/O hernia repair History of cholecystectomy Family History Mother Diabetes Father Heart disease Social History Smoking and tobacco status: light tobacco smoker cigarettes Alcohol intake: never Household members: none Marital status: / Current occupational status: unemployed History of recent travel: No Physical Exam Const: COMMON NORMALS: no acute distress, patient oriented x3 and alert GENERAL APPEARANCE: cooperative and comfortable HENMT: COMMON NORMALS: normocephalic HEAD & SCALP: normocephalic FACE & SINUS: edema on the left submandibular, upper lip and lower lip MOUTH: Normal oral and palatal mucosa present THROAT: posterior oropharynx normal and uvula midline Eye: COMMON NORMALS: Equal, round and reactive pupils present and conjunctivae normal PERIORBITAL: periorbital findings normal CONJUNCTIVA: Yes conjunctivae normal PUPIL: Yes Equal, round and reactive pupils present Neck/C-Spine: COMMON NORMALS: supple GENERAL: Yes normal visual inspection Resp: COMMON NORMALS: normal respiratory effort, No retractions, No use of accessory muscles and clear to auscultation bilaterally AUSCULTATION: clear to auscultation bilaterally Cardio: COMMON NORMALS: regular rate, regular rhythm, S1 normal heart sound present, S2 normal heart sound present, No gallops present (Cardio), No clicks present (Cardio), No murmurs present (Cardio) and Peripheral pulses 2+ throughout RATE: regular rate RHYTHM: regular rhythm HEART SOUNDS: S1 normal heart sound present and S2 normal heart sound present PERIPHERAL PULSES: Peripheral pulses 2+ throughout GI: COMMON NORMALS: Normal to inspection, nondistended, normoactive bowel sounds present, Soft to palpation, non-tender and no masses PALPATION: Yes Soft to palpation : COMMON NORMALS: Yes no CVA tenderness BLADDER/KIDNEY EXAM: Yes no CVA tenderness Back/Pelvis: COMMON NORMALS: no CVA tenderness Extremity: COMMON NORMALS: normal to inspection Neuro: COMMON NORMALS: patient oriented x3 and moves all extremities SENSORIUM/ORIENTATION: Yes alert Skin: GENERAL SKIN EXAM: dry skin Course Reevaluation(s): Reevaluation #1: I went in to check on patient after he received epinephrine. His lip swelling has improved. He says his shortness of breath and chest tightness have also improved. He currently has a little bit of headache and nausea and I told him I would give him some meds to treat those. Time: 16:16 Vital Signs: Vital signs: Vital Signs Temperature 99.4 F 11/20/20 15:22 Pulse Rate 88 11/20/20 17:17 Respiratory Rate 16 11/20/20 17:17 Blood Pressure 136/93 11/20/20 17:17 Pulse Oximetry 99 11/20/20 17:17 MDM - Animal Bite MDM Narrative: Medical decision making narrative: Patient is a 55-year-old male comes to the ED with allergic reaction to wasp sting. Patient says he is allergic to wasp stings and has had this happen before. Patient was stung on left upper lip and he started having lip swelling, chest tightness, throat tightness/shortness of breath upon arrival here in the ED. He was then immediately given a dose of IM epinephrine, IV fluids, Benadryl, Solu-Medrol and famotidine. After given meds his facial and lip swelling improved and patient says his symptoms of chest tightness, throat tightness and shortness of breath have resolved. Patient was monitored for over an hour after epi was given and his symptoms have resolved and he is stable for discharge. Patient does not have an EpiPen at home, so I sent patient with a prescription for 2 EpiPens and instructed him on use. He was also discharged home with a prescription for prednisone as well. Return to ED precautions given. Told patient to follow-up with his PCP in 7 to 10 days for reevaluation. Patient understood and agreed with plan. Discharge Plan Discharge Patient Disposition: Home Clinical Impression: Wasp sting-induced anaphylaxis Qualifiers: Encounter type: initial encounter Injury intent: accidental or unintentional Qualified Code(s): T63.461A - Toxic effect of venom of wasps, accidental (unintentional), initial encounter Condition: Stable Prescriptions: New EpiPen 2-Garrick 0.3 mg/0.3 mL auto-injector 0.3 mg IM Q30M PRN (Reason: anaphylaxis) Qty: 2 RF: 0 prednisone 20 mg tablet 20 mg PO BID 5 Days Qty: 10 RF: 0 No Action gabapentin 600 mg tablet 900 mg PO BID RF: 0 hydrocodone-acetaminophen 5-325 mg tablet 1 tab PO Q6H PRN (Reason: pain) 7 Days Qty: 60 RF: 0 alprazolam 2 mg tablet 2 mg PO QID PRN (Reason: anxiety) RF: 0 hydrocodone-acetaminophen 5-325 mg tablet 1 tab PO BID PRN (Reason: Pain) RF: 0 acetaminophen [Tylenol Extra Strength] 500 mg Tablet 1,000 mg PO PRN RF: 0 pantoprazole [Protonix] 40 mg Tablet,Delayed Release (Dr/Ec) 40 mg PO DAILY RF: 0 Discharge Orders: Discharge ED (Routine); Ordered 11/20/20 Ordered By: Thiago Aviles Referrals: Timmy Sorto, DO [Primary Care Provider] - Discharge Diet: Regular Discharge Activity: Increase activity as tolerated Patient Instructions: Allergic Reaction, Insect Bite or Sting (ED), Anaphylaxis (ED) Activity Restrictions/Additional Instructions: Follow-up with medical provider as directed in 5 days for reevaluation. Take medications as prescribed. I am sending you home with a prescription for 2 pack of EpiPen's. You can use those as needed for any anaphylactic allergic reactions. If having a anaphylactic reaction you can use EpiPen dose and then come straight to hospital for further evaluation. Return to the ER or your medical provider if condition worsens. Please read and understand discharge instructions. Thank you for choosing [facility] for your healthcare needs today. Please realize this is an emergency room and that we are providing you with a medical screening exam and this may not be complete and all inclusive of all the testing and or work up that you may need to determine your ailment or severity of your illness. It is very important that you follow up as instructed or that you return to the Emergency Department should you have concerns or if your condition changes or worsens in any way. Coding Level of Care Code ED Valve Steamer for Braden Duffy Exam Comprehensive
[2020-11-20] MEDS: famotidine 20 mg/2 mL INJ 40 MG IVP (15:52)
[2020-11-20] MEDS: sodium chloride 0.9% 500 ML 999 ML IV (15:52)
[2020-11-20] MEDS: diphenhydrAMINE 50 mg/mL SDV 1mL IVP (15:52)
[2020-11-20] MEDS: EPINEPHrine 1 mg/mL INJ 0.3 MG IM (15:54)
[2020-11-20] MEDS: ondansetron 2 mg/ML SDV 2 mL 4 MG IVP (16:32)
[2020-11-20] MEDS: ketorolac 30 mg/mL INJ IVP (16:32)
[2020-11-20 17:17] VITALS: BP 136/93; PULSE 88; RESP 16; O2SAT 99
== END 2020-11-20 17:18 | disposition home or self-care (01) ==
PROVIDERS: Emergency Provider Physician Assistant; PCP Family Medicine
DX: T63.461A Toxic effect of venom of wasps, accidental (unintentional), initial encounter (principal); R22.0 Localized swelling, mass and lump, head; R07.89 Other chest pain; R06.02 Shortness of breath; F17.210 Nicotine dependence, cigarettes, uncomplicated
CPT/HCPCS: 96372; 96374; 96375; 99284; J0171; J1200; J1885; J2405; J2930; J3490; J7040

== ENCOUNTER 2021-02-20 16:15 | Emergency (ER) | payer MEDICAID, SELFPAY ==
[2021-02-20 16:41] VITALS: BP 144/93; PULSE 90; RESP 16; TEMP 36.7; O2SAT 96
--- NOTE | 2021-02-20 17:43 | W.ED.CHESTPA ---
Documented by User: Prince Archuleta MD 02/25/21 23:53 HPI - Chest Pain General: Chief Complaint: Chest Pain Stated Complaint: SOB, Achy, Chest Pain Time Seen by Provider: 02/20/21 17:43 History of Present Illness: HPI narrative: Mr. Russ is a 55-year-old gentleman with history of back pain as well as tobaccoism who presents the emergency department due to chest pain, shortness of breath, and generalized malaise. Symptoms have been going on for a number of days and initially were mild however is since worsened. He complains of moderate to severe intensity myalgias primarily in his shoulders and legs. He does have shortness of breath without productive cough. No other specific infectious symptoms. Denies history of of frequent similar episodes. No cardiac history. Does have positive family history for cardiac disease. No other specific exacerbating or alleviating factors Review of Systems General: Reports: 10 or more systems reviewed and unremarkable except in HPI and below PFSH ED PFSH: Medical History (Updated 02/20/21 @ 20:04 by Dago Boykin MD) Cervical disc disease Chronic hepatitis C Chronic migraine Depression Lumbar disc disease with radiculopathy Spondylolisthesis of cervical region Surgical History H/O hernia repair History of cholecystectomy Family History Mother Diabetes Father Heart disease Social History Smoking and tobacco status: light tobacco smoker cigarettes Alcohol intake: never Household members: none Marital status: / Current occupational status: unemployed History of recent travel: No Physical Exam Narrative: EXAM NARRATIVE: GENERAL/CONSTITUTIONAL -mildly ill-appearing. No acute distress. Eyes - PERRL, no conjunctival injection ENMT - Atraumatic external nose and ears. Moist mucous membranes NECK - supple. trachea midline CARDIOVASCULAR - regular rate and rhythm. RESPIRATORY -clear to auscultation bilaterally. No retractions or accessory muscle use. ABDOMEN/GI - Nontender/Nondistended. No tenderness to percussion or evidence of peritonitis MSK - Extremities without obvious deformity or tenderness to palpation SKIN - Warm, Dry NEURO - alert and appropriately oriented. Moves all extremities equally. Course ED course: - Patient was seen and evaluated by me at bedside - Patient placed on cardiac monitors, IV access obtained - Initial evaluation notable for mildly ill appearance, no acute distress. - Symptom treatment ordered - Patient care handed off to overnight ED physician Dr. Boykin pending completion of chest pain evaluation. Based on patient's description of symptoms this is more likely related to a viral syndrome that primary cardiac etiology - Per chart review no leukocytosis, mild evidence of dehydration on metabolic panel, delta troponin negative. Viral studies negative. Chest x-ray without evidence of lobar pneumonia. Vital Signs: Vital signs: Vital Signs Temperature 98.1 F 02/20/21 16:41 Pulse Rate 88 02/20/21 20:44 Respiratory Rate 18 02/20/21 20:44 Blood Pressure 142/101 02/20/21 20:44 Pulse Oximetry 96 02/20/21 20:44 MDM - Chest Pain Medical Records: Attestation: I reviewed the patient's medical records. Lab Data: Attestation: I reviewed the patient's lab results. Labs: Lab Results 02/20/21 02/20/21 02/20/21 18:22 18:22 18:22 WBC 8.5 10^3/uL 10^3/ uL (4.0-10.0) RBC 5.36 10^6/uL H 10 ^6/uL (4.1-5.3) Hgb 17.0 g/dL H g/dL (11.7-16.6) Hct 49.7 % % (42.0-52.0) MCV 92.7 fl fl (80-94) MCH 31.7 pg pg (28.0-34.0) MCHC 34.2 g/dL g/dL (30.0-36.0) RDW 11.5 % L % (12.1-15.1) Plt Count 269 10^3/cmm 10^3 /cmm (130-400) MPV 9.6 fL fL (7.4-10.4) Neut % (Auto) 70.6 % % Lymph % (Auto) 24.1 % % [place] % (Auto) 4.4 % % Eos % (Auto) 0.5 % % Baso % (Auto) 0.2 % % Neut # (Auto) 6.02 10^3/uL 10^3 /uL (1.8-7.7) Lymph # (Auto) 2.1 10^3/uL 10^3/ uL (0.8-4.8) [place] # (Auto) 0.4 10^3/uL 10^3/ uL (0.2-0.9) Eos # (Auto) 0.0 10^3/uL 10^3/ uL (0.0-0.8) Baso # (Auto) 0.0 10^3/uL 10^3/ uL (0.0-0.1) Nucleated RBC % (a uto) 0 % % Nucleated RBCs # 0.0 /100WBC /100W BC Sodium 134 mmol/L L mmol /L (136-145) Potassium 4.2 mmol/L mmol/L (3.5-5.1) Chloride 97 mmol/L L mmol/ L (98-107) Carbon Dioxide 27 mmol/L mmol/L (22-29) Anion Gap 14.2 (5-19) BUN 12 mg/dL mg/dL (6-20) Creatinine 0.7 mg/dL mg/dL (0.7-1.2) GFR Calculation 118.0 mL/min mL/m in (90-130) Glucose 99 mg/dL mg/dL (65-115) Calculated Osmolal ity 278 mOsm/kg L mOs m/kg (285-295) Calcium 9.5 mg/dL mg/dL (8.5-10.5) Total Bilirubin 0.3 mg/dL mg/dL (0.15-1.2) AST 19 U/L U/L (0-40) ALT 30 U/L U/L (0-41) Alkaline Phosphata se 69 IU/L IU/L (40-130) Troponin T Baselin e 6 ng/L ng/L (0-15) Troponin T 120 Min [place] Troponin T C-Reactive Protein 2.5 mg/L mg/L (0.0-4.9) Total Protein 7.3 g/dL g/dL (6.6-8.7) Albumin 4.7 g/dL g/dL (3.5-5.2) Globulin 2.6 g/dL g/dL (1.3-4.6) Procalcitonin 0.03 ng/mL ng/mL (0-0.5) Influenza Type A A g Influenza Type B A g SARS-CoV-2 Ag (Rap id) 02/20/21 02/20/21 02/20/21 18:23 18:23 20:17 WBC RBC Hgb Hct MCV MCH MCHC RDW Plt Count MPV Neut % (Auto) Lymph % (Auto) [place] % (Auto) Eos % (Auto) Baso % (Auto) Neut # (Auto) Lymph # (Auto) [place] # (Auto) Eos # (Auto) Baso # (Auto) Nucleated RBC % (a uto) Nucleated RBCs # Sodium Potassium Chloride Carbon Dioxide Anion Gap BUN Creatinine GFR Calculation Glucose Calculated Osmolal ity Calcium Total Bilirubin AST ALT Alkaline Phosphata se Troponin T Baselin e Troponin T 120 Min [place] 6.00 ng/L ng/L (0-15) Delta Troponin T 0 ABS# ABS# (0-10) C-Reactive Protein Total Protein Albumin Globulin Procalcitonin Influenza Type A A g Negative (Negative) Influenza Type B A g Negative (Negative) SARS-CoV-2 Ag (Rap id) Negative (Negative) EKG Data^: EKG 2: Attestation: I personally reviewed and interpreted this EKG as follows: EKG interpretation date: 02/20/21 EKG interpretation time: 16:45 Interpretation: Twelve-lead EKG shows a regular rhythm at a rate of 88. VT interval 163, QRS duration 83, QTc 407. Left axis deviation. Interpretation: Sinus rhythm. Discharge Plan Discharge Patient Disposition: Home Clinical Impression: Chest pain Qualifiers: Chest pain type: unspecified Qualified Code(s): R07.9 - Chest pain, unspecified Condition: Stable Prescriptions: No Action gabapentin 600 mg tablet 900 mg PO BID RF: 0 hydrocodone-acetaminophen 5-325 mg tablet 1 tab PO Q6H PRN (Reason: pain) 7 Days Qty: 60 RF: 0 alprazolam 2 mg tablet 2 mg PO QID PRN (Reason: anxiety) RF: 0 hydrocodone-acetaminophen 5-325 mg tablet 1 tab PO BID PRN (Reason: Pain) RF: 0 acetaminophen [Tylenol Extra Strength] 500 mg Tablet 1,000 mg PO PRN RF: 0 pantoprazole [Protonix] 40 mg Tablet,Delayed Release (Dr/Ec) 40 mg PO DAILY RF: 0 EpiPen 2-Garrick 0.3 mg/0.3 mL auto-injector 0.3 mg IM Q30M PRN (Reason: anaphylaxis) Qty: 2 RF: 0 Discharge Orders: Discharge ED (Routine); Ordered 02/20/21 Ordered By: Dago Boykin Referrals: Timmy Sorto DO [Primary Care Provider] - 1-3 days Discharge Diet: Advance as tolerated Discharge Activity: Resume usual activity Patient Instructions: Chest Pain (ED) Coding Level of Care Code ED Provider Relations Consultant for Chg Fwd Documented by User: Dago Boykin MD 02/20/21 21:01 HPI - Chest Pain General: Chief Complaint: Chest Pain Stated Complaint: SOB, Achy, Chest Pain Time Seen by Provider: 02/20/21 17:43 PFSH ED PFSH: Medical History (Updated 02/20/21 @ 20:04 by Dago Boykin MD) Cervical disc disease Chronic hepatitis C Chronic migraine Depression Lumbar disc disease with radiculopathy Spondylolisthesis of cervical region Surgical History H/O hernia repair History of cholecystectomy Family History Mother Diabetes Father Heart disease Social History Smoking and tobacco status: light tobacco smoker cigarettes Alcohol intake: never Household members: none Marital status: / Current occupational status: unemployed History of recent travel: No Course Vital Signs: Vital signs: Vital Signs Temperature 98.1 F 02/20/21 16:41 Pulse Rate 88 02/20/21 20:44 Respiratory Rate 18 02/20/21 20:44 Blood Pressure 142/101 02/20/21 20:44 Pulse Oximetry 96 02/20/21 20:44 MDM - Chest Pain MDM Narrative: Medical decision making narrative: Patient presents here with congestion some body aches and chest pain his chest pain here is very atypical initial repeat troponins normal no signs of pneumonia here patient is stable for discharge is to follow-up PCP and return if worsening. Lab Data: Labs: Lab Results 02/20/21 02/20/21 02/20/21 18:22 18:22 18:22 WBC 8.5 10^3/uL 10^3/ uL (4.0-10.0) RBC 5.36 10^6/uL H 10 ^6/uL (4.1-5.3) Hgb 17.0 g/dL H g/dL (11.7-16.6) Hct 49.7 % % (42.0-52.0) MCV 92.7 fl fl (80-94) MCH 31.7 pg pg (28.0-34.0) MCHC 34.2 g/dL g/dL (30.0-36.0) RDW 11.5 % L % (12.1-15.1) Plt Count 269 10^3/cmm 10^3 /cmm (130-400) MPV 9.6 fL fL (7.4-10.4) Neut % (Auto) 70.6 % % Lymph % (Auto) 24.1 % % [place] % (Auto) 4.4 % % Eos % (Auto) 0.5 % % Baso % (Auto) 0.2 % % Neut # (Auto) 6.02 10^3/uL 10^3 /uL (1.8-7.7) Lymph # (Auto) 2.1 10^3/uL 10^3/ uL (0.8-4.8) [place] # (Auto) 0.4 10^3/uL 10^3/ uL (0.2-0.9) Eos # (Auto) 0.0 10^3/uL 10^3/ uL (0.0-0.8) Baso # (Auto) 0.0 10^3/uL 10^3/ uL (0.0-0.1) Nucleated RBC % (a uto) 0 % % Nucleated RBCs # 0.0 /100WBC /100W BC Sodium 134 mmol/L L mmol /L (136-145) Potassium 4.2 mmol/L mmol/L (3.5-5.1) Chloride 97 mmol/L L mmol/ L (98-107) Carbon Dioxide 27 mmol/L mmol/L (22-29) Anion Gap 14.2 (5-19) BUN 12 mg/dL mg/dL (6-20) Creatinine 0.7 mg/dL mg/dL (0.7-1.2) GFR Calculation 118.0 mL/min mL/m in (90-130) Glucose 99 mg/dL mg/dL (65-115) Calculated Osmolal ity 278 mOsm/kg L mOs m/kg (285-295) Calcium 9.5 mg/dL mg/dL (8.5-10.5) Total Bilirubin 0.3 mg/dL mg/dL (0.15-1.2) AST 19 U/L U/L (0-40) ALT 30 U/L U/L (0-41) Alkaline Phosphata se 69 IU/L IU/L (40-130) Troponin T Baselin e 6 ng/L ng/L (0-15) Troponin T 120 Min [place] Troponin T C-Reactive Protein 2.5 mg/L mg/L (0.0-4.9) Total Protein 7.3 g/dL g/dL (6.6-8.7) Albumin 4.7 g/dL g/dL (3.5-5.2) Globulin 2.6 g/dL g/dL (1.3-4.6) Procalcitonin 0.03 ng/mL ng/mL (0-0.5) Influenza Type A A g Influenza Type B A g SARS-CoV-2 Ag (Rap id) 02/20/21 02/20/21 02/20/21 18:23 18:23 20:17 WBC RBC Hgb Hct MCV MCH MCHC RDW Plt Count MPV Neut % (Auto) Lymph % (Auto) [place] % (Auto) Eos % (Auto) Baso % (Auto) Neut # (Auto) Lymph # (Auto) [place] # (Auto) Eos # (Auto) Baso # (Auto) Nucleated RBC % (a uto) Nucleated RBCs # Sodium Potassium Chloride Carbon Dioxide Anion Gap BUN Creatinine GFR Calculation Glucose Calculated Osmolal ity Calcium Total Bilirubin AST ALT Alkaline Phosphata se Troponin T Baselin e Troponin T 120 Min [place] 6.00 ng/L ng/L (0-15) Delta Troponin T 0 ABS# ABS# (0-10) C-Reactive Protein Total Protein Albumin Globulin Procalcitonin Influenza Type A A g Negative (Negative) Influenza Type B A g Negative (Negative) SARS-CoV-2 Ag (Rap id) Negative (Negative) Imaging Data^: CXR: Attestation: I personally reviewed and interpreted this imaging study as follows: Radiologist's impression: no acute abnormality EKG Data^: EKG 1: Attestation: I personally reviewed and interpreted this EKG as follows: EKG interpretation date: 02/20/21 EKG interpretation time: 19:38 Interpretation: nsr hr [address] or t wave abnormalities qrs 98 qtc 384 Discharge Plan Discharge Patient Disposition: Home Clinical Impression: Chest pain Qualifiers: Chest pain type: unspecified Qualified Code(s): R07.9 - Chest pain, unspecified Condition: Stable Prescriptions: No Action gabapentin 600 mg tablet 900 mg PO BID RF: 0 hydrocodone-acetaminophen 5-325 mg tablet 1 tab PO Q6H PRN (Reason: pain) 7 Days Qty: 60 RF: 0 alprazolam 2 mg tablet 2 mg PO QID PRN (Reason: anxiety) RF: 0 hydrocodone-acetaminophen 5-325 mg tablet 1 tab PO BID PRN (Reason: Pain) RF: 0 acetaminophen [Tylenol Extra Strength] 500 mg Tablet 1,000 mg PO PRN RF: 0 pantoprazole [Protonix] 40 mg Tablet,Delayed Release (Dr/Ec) 40 mg PO DAILY RF: 0 EpiPen 2-Garrick 0.3 mg/0.3 mL auto-injector 0.3 mg IM Q30M PRN (Reason: anaphylaxis) Qty: 2 RF: 0 Discharge Orders: Discharge ED (Routine); Ordered 02/20/21 Ordered By: Dago Boykin Referrals: Timmy Sorto DO [Primary Care Provider] - 1-3 days Discharge Diet: Advance as tolerated Discharge Activity: Resume usual activity Patient Instructions: Chest Pain (ED) Coding Level of Care Code ED Provider Relations Consultant for Braden Duffy
--- NOTE | 2021-02-20 17:47 | XRR_ITS ---
PROCEDURE INFORMATION: Exam: XR Chest Exam date and time: 02/20/2021 5:47 PM Age: 55 years old Clinical indication: Sternal or substernal pain; Patient HX: Cp, SOB; Additional info: Chest pain TECHNIQUE: Imaging protocol: XR of the chest. Views: 1 view. COMPARISON: CR XR chest 2V* [id number] 12/31/2020 5:33 PM FINDINGS: Lungs: Unremarkable. No consolidation. Pleural spaces: Unremarkable. No pleural effusion. No pneumothorax. Heart/Mediastinum: Unremarkable. No cardiomegaly. Bones/joints: Unremarkable. XR/XR chest 1V portable [id number] IMPRESSION: No acute findings. Radiation Dose CTDIVOL = (mGy): DLP = (mGy-cm)
--- NOTE | 2021-02-20 17:47 | ECG_ITS ---
[facility] Test Date: 2021-02-20 Pat Name: Guille Russ Department: Room: Gender: Male Cso: : 1965 Requested By: Prince Archuleta Order Number: [id number] Claros MD: Nitin Shaw M.D. Measurements Intervals [place] Rate: 88 P: 78 WA: 163 QRS: -54 QRSD: 83 T: 75 QT: 335 QTc: 407 Interpretive Statements SINUS RHYTHM POSSIBLE LEFT ATRIAL ENLARGEMENT [-0.1mV P-WAVE IN V1/V2] PATTERN CONSISTENT WITH PULMONARY DISEASE LEFT ANTERIOR FASCICULAR BLOCK [QRS AXIS <= -45, QR IN I, RS IN II] Compared to ECG 12/08/2018 11:21:28 Sinus tachycardia no longer present Electronically Signed On 02-20-2021 20:51:08 HRIS COORDINATOR by Nitin Shaw M.D. [id number] f
[2021-02-20 18:30] LABS: Basophils % 0.2 %; Eosinophils % 0.5 %; Hematocrit 49.7 % (42.0-52.0); Lymphocytes # 2.1 10^3/uL (0.8-4.8); Lymphocytes % 24.1 %; Mean Corpuscular HGB Conc 34.2 g/dL (30.0-36.0); Mean Corpuscular Hemoglobin 31.7 pg (28.0-34.0); Mean Corpuscular Volume 92.7 fl (80-94); Mean Platelet Volume 9.6 fL (7.4-10.4); Monocytes # 0.4 10^3/uL (0.2-0.9); Monocytes % 4.4 %; Neutrophils # 6.02 10^3/uL (1.8-7.7); Neutrophils % 70.6 %; Nucleated Red Blood Cells % 0 %; Platelet Count 269 10^3/cmm (130-400); Red Blood Count 5.36 10^6/uL (4.1-5.3); Red Cell Distribution Width 11.5 % (12.1-15.1); White Blood Count 8.5 10^3/uL (4.0-10.0)
[2021-02-20 19:05] LABS: Alanine Aminotransferase 30 U/L (0-41); Albumin Level 4.7 g/dL (3.5-5.2); Alkaline Phosphatase 69 IU/L (40-130); Anion Gap 14.2 (5-19); Aspartate Amino Transferase 19 U/L (0-40); Blood Urea Nitrogen 12 mg/dL (6-20); C Reactive Protein 2.5 mg/L (0.0-4.9); Calcium 9.5 mg/dL (8.5-10.5); Carbon Dioxide 27 mmol/L (22-29); Chloride 97 mmol/L (98-107); Globulin 2.6 g/dL (1.3-4.6); Glucose 99 mg/dL (65-115); Osmolality Calculated 278 mOsm/kg (285-295); Potassium 4.2 mmol/L (3.5-5.1); Sodium 134 mmol/L (136-145); Total Bilirubin 0.3 mg/dL (0.15-1.2); Total Protein 7.3 g/dL (6.6-8.7); Troponin(5th) Baseline 6 ng/L (0-15)
[2021-02-20 19:07] LABS: Procalcitonin 0.03 ng/mL (0-0.5)
[2021-02-20 19:30] VITALS: PULSE 80; RESP 18; O2SAT 98
[2021-02-20 19:32] LABS: SARS Covid-2 Antigen Negative (Negative)
[2021-02-20] MEDS: sodium chloride 0.9% 1,000 ML 999 ML IV (19:40)
--- NOTE | 2021-02-20 19:47 | ECG_ITS ---
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 Measurements Intervals [place] Rate: 65 P: 66 GA: 171 QRS: 1 QRSD: 98 T: 75 QT: 372 QTc: 389 Interpretive Statements SINUS RHYTHM POSSIBLE LEFT ATRIAL ENLARGEMENT [-0.1mV P-WAVE IN V1/V2] NONSPECIFIC ST ELEVATION [0.05+ mV ST ELEVATION] Compared to ECG 02/20/2021 16:40:07 ST (T wave) deviation now present Left anterior fascicular block no longer present Electronically Signed On 02-21-2021 4:25:38 HEALTH INFORMATION CODER by Nitin Shaw M.D. [id number] f
[2021-02-20 19:48] LABS: Influenza A by IFA Negative (Negative); Influenza B by IFA Negative (Negative)
[2021-02-20 20:44] VITALS: BP 142/101; PULSE 88; RESP 18; O2SAT 96
[2021-02-20 20:58] LABS: Troponin 5 2HR Delta 0 ABS# (0-10)
== END 2021-02-20 20:46 | disposition home or self-care (01) ==
PROVIDERS: Emergency Medicine; Emergency Provider Emergency Medicine; PCP Family Medicine
DX: R07.9 Chest pain, unspecified (principal); E86.0 Dehydration; F17.210 Nicotine dependence, cigarettes, uncomplicated; Z79.891 Long term (current) use of opiate analgesic
CPT/HCPCS: 71045; 80053; 84145; 84484; 85025; 86140; 87426; 87804; 93005; 96360; 99284; J7030

== ENCOUNTER → 2021-04-08 10:48 | Outpatient (BNVA) | payer MEDICAID, SELFPAY | PROVIDERS: PCP Family Medicine; Visit Provider Internal Medicine | DX: G89.29 Other chronic pain (principal); R53.1 Weakness; R63.4 Abnormal weight loss; Z68.21 Body mass index [BMI] 21.0-21.9, adult; Z11.59 Encounter for screening for other viral diseases; Z11.1 Encounter for screening for respiratory tuberculosis; F32.A Depression, unspecified; F17.210 Nicotine dependence, cigarettes, uncomplicated | CPT/HCPCS: 99204 ==

== ENCOUNTER 2021-04-11 14:37 | Outpatient (CLI) | payer MEDICAID, SELFPAY ==
--- NOTE | 2021-04-11 14:40 | XR_ITS ---
WS: [email or web address] XR hand LT 2V [id number] REASON FOR EXAM: M48.062 - Spinal stenosis, lumbar region with neurogenic ... FINDINGS: No fracture or focal bone lesion. Mild narrowing of the DIP and PIP joints with subchondral sclerosis and small marginal osteophytes in the second through the fifth fingers. Similar arthropathy is seen in the joints of the thumb. No soft tissue abnormality. XR/XR hand LT 2V [id number] IMPRESSION: Mild osteoarthritis of the left hand.
--- NOTE | 2021-04-11 14:40 | XR_ITS ---
WS: [email or web address] XR hand RT 2V [id number] REASON FOR EXAM: M48.062 - Spinal stenosis, lumbar region with neurogenic ... FINDINGS: No fracture or focal bone lesion. Mild narrowing of the joint spaces of the DIP and PIP joints of the second through the fifth fingers with mild subchondral sclerosis and small marginal osteophytes. Similar arthropathic changes seen in the joints of the thumb. No soft tissue abnormality. XR/XR hand RT 2V [id number] IMPRESSION: Mild osteoarthritis of the right hand.
--- NOTE | 2021-04-11 14:40 | XR_ITS ---
WS: [email or web address] XR sacroiliac jts m 3V [id number] REASON FOR EXAM: L40.9 - Psoriasis, unspecified FINDINGS: No fracture or focal bone lesion. The sacroiliac joints are well defined without areas of fusion or bridging. Mild periarticular sclerosis. No erosions. XR/XR sacroiliac jts m 3V [id number] IMPRESSION: No findings of sacroiliitis.
[2021-04-11 16:02] LABS: Basophils % 0.4 %; Eosinophils % 0.5 %; Hematocrit 52.9 % (42.0-52.0); Mean Corpuscular HGB Conc 32.1 g/dL (30.0-36.0); Mean Corpuscular Hemoglobin 31.8 pg (28.0-34.0); Mean Corpuscular Volume 99.1 fl (80-94); Mean Platelet Volume 9.5 fL (7.4-10.4); Monocytes # 0.4 10^3/uL (0.2-0.9); Monocytes % 4.8 %; Neutrophils # 6.03 10^3/uL (1.8-7.7); Neutrophils % 70.9 %; Nucleated Red Blood Cells % 0 %; Platelet Count 266 10^3/cmm (130-400); Red Blood Count 5.34 10^6/uL (4.1-5.3); Red Cell Distribution Width 12.8 % (12.1-15.1); White Blood Count 8.5 10^3/uL (4.0-10.0)
[2021-04-11 16:45] LABS: Alanine Aminotransferase 18 U/L (0-41); Albumin Level 4.7 g/dL (3.5-5.2); Alkaline Phosphatase 82 IU/L (40-130); Anion Gap 19.3 (5-19); Aspartate Amino Transferase 17 U/L (0-40); Blood Urea Nitrogen 11 mg/dL (6-20); C Reactive Protein 0.8 mg/L (0.0-4.9); Calcium 9.1 mg/dL (8.5-10.5); Carbon Dioxide 24 mmol/L (22-29); Chloride 99 mmol/L (98-107); Creatine Phosphokinase 36 U/L (39-308); Ferritin 494 ng/mL (30-400); Globulin 2.5 g/dL (1.3-4.6); Glomerular Filtration Rate 101.1 mL/min (90-130); Glucose 106 mg/dL (65-115); Iron 80 ug/dL (59-158); Osmolality Calculated 286 mOsm/kg (285-295); Potassium 4.3 mmol/L (3.5-5.1); Sodium 138 mmol/L (136-145); Thyroid Stimulating Hormone 1.48 uIU/mL (0.27-4.20); Total Bilirubin 0.3 mg/dL (0.15-1.2); Total Protein 7.2 g/dL (6.6-8.7)
[2021-04-11 16:53] LABS: Hepatitis B Core AB, Total Non-Reactive (Nonreactive); Hepatitis B Surface Antigen Non-Reactive (Nonreactive); Hepatitis C Virus Antibody Reactive (Nonreactive)
[2021-04-11 16:56] LABS: HIV 1 & 2 Antibody Non-Reactive (Non-Reactiv); HIV 1 & 2 Antigen Non-Reactive (Non-Reactiv)
[2021-04-15 13:43] LABS: Cyclic Citrullinated Peptide <16 UNITS
[2021-04-15 15:57] LABS: Immunoglobulin A 206 mg/dL (47-310)
[2021-04-17 08:07] LABS: Gliadin Ab.IgA <1.0 U/mL; Gliadin Ab.IgG <1.0 U/mL; Tissue Transglutaminase IgA Ab <1.0 U/mL; Tissue transglutaminase Ab.IgG <1.0 U/mL
[2021-04-19 01:27] LABS: Cryoglobulins Qualitative None Detected (None Detected)
== END 2021-04-11 14:38 | disposition home or self-care (01) ==
PROVIDERS: PCP Family Medicine; Visit Provider Internal Medicine
DX: M43.12 Spondylolisthesis, cervical region (principal); M48.062 Spinal stenosis, lumbar region with neurogenic claudication; M51.16 Intervertebral disc disorders with radiculopathy, lumbar region; R20.2 Paresthesia of skin; L40.9 Psoriasis, unspecified; Z11.59 Encounter for screening for other viral diseases
CPT/HCPCS: 36415; 72202; 73120; 80053; 82550; 82595; 82728; 82784; 83516; 83540; 84443; 85025; 86140; 86200; 86431; 86704; 86803; 87340; 87806

== ENCOUNTER 2021-04-22 15:03 | Outpatient (CLI) | payer MEDICAID, SELFPAY ==
[2021-04-22 17:01] LABS: Erythrocyte Sedimentation Rate 11 mm/hr (0-10)
[2021-04-24 11:54] LABS: COMPLEMENT COMPONENT C3C 105 mg/dL (82-185); COMPLEMENT COMPONENT C4C 16 mg/dL (15-53)
[2021-04-24 13:04] LABS: COMPLEMENT, TOTAL (CH50) >60 U/mL (31-60)
[2021-04-24 13:17] LABS: CENTROMERE B ANTIBODY <1.0 NEG AI (<1.0 NEG); JO-1 ANTIBODY <1.0 NEG AI (<1.0 NEG); RNP ANTIBODY <1.0 NEG AI (<1.0 NEG); SCL-70 ANTIBODY <1.0 NEG AI (<1.0 NEG); SJOGREN'S ANTIBODY (SS-A) <1.0 NEG AI (<1.0 NEG); SM ANTIBODY <1.0 NEG AI (<1.0 NEG); SS-B <1.0 NEG AI (<1.0 NEG)
[2021-04-24 15:48] LABS: ANA SCREEN, IFA NEGATIVE (NEGATIVE)
[2021-04-24 16:27] LABS: THYROID PEROXIDASE ANTIBODIES <1 IU/mL (<9)
[2021-04-26 10:37] LABS: DNA AB (DS) CRITHIDIA,IFA NEGATIVE (NEGATIVE)
== END 2021-04-22 15:04 | disposition home or self-care (01) ==
LOC: LAB 15:08
PROVIDERS: PCP Family Medicine; Visit Provider Internal Medicine
DX: M43.12 Spondylolisthesis, cervical region (principal); M48.062 Spinal stenosis, lumbar region with neurogenic claudication; M51.16 Intervertebral disc disorders with radiculopathy, lumbar region; R20.2 Paresthesia of skin
CPT/HCPCS: 85651; 86160; 86162; 86235; 86255; 86376

== ENCOUNTER → 2021-04-24 09:34 | Outpatient (BNVA) | payer MEDICAID, SELFPAY | PROVIDERS: PCP Family Medicine; Visit Provider Internal Medicine | DX: M06.9 Rheumatoid arthritis, unspecified (principal); R63.4 Abnormal weight loss; F32.A Depression, unspecified; Z86.19 Personal history of other infectious and parasitic diseases; F17.210 Nicotine dependence, cigarettes, uncomplicated | CPT/HCPCS: 96372; 99214 ==

== ENCOUNTER → 2021-05-07 14:33 | Outpatient (BNVA) | payer MEDICAID, SELFPAY | PROVIDERS: PCP Family Medicine; Visit Provider Internal Medicine | DX: M06.9 Rheumatoid arthritis, unspecified (principal); B19.20 Unspecified viral hepatitis C without hepatic coma; R76.8 Other specified abnormal immunological findings in serum; R63.4 Abnormal weight loss; Z68.20 Body mass index [BMI] 20.0-20.9, adult; D75.1 Secondary polycythemia; F17.210 Nicotine dependence, cigarettes, uncomplicated | CPT/HCPCS: 96372; 99214 ==

== ENCOUNTER → 2021-06-25 14:11 | Outpatient (BNVA) | payer MEDICAID, SELFPAY | PROVIDERS: PCP Family Medicine; Visit Provider Orthopaedic Surgery | DX: M47.816 Spondylosis without myelopathy or radiculopathy, lumbar region (principal) | CPT/HCPCS: 72110 ==

== ENCOUNTER 2021-06-27 11:17 | Outpatient (CLI) | payer MEDICAID, SELFPAY ==
[2021-06-27] MEDS: iohexol 300 mg/mL 50 mL Btl PO (11:40)
[2021-06-27] MEDS: iohexol 350 mg/mL 100 mL Btl IV (11:40)
--- NOTE | 2021-06-27 12:30 | CT_ITS ---
WS: [id number] CT CHEST, ABDOMEN AND PELVIS WITH CONTRAST. HISTORY: M06.9 - Rheumatoid arthritis, unspecified TECHNIQUE: Contiguous 5 mm axial imaging performed through the chest, abdomen and pelvis with IV cont rast, oral contrast has been provided. Coronal and sagittal reformats chest. Coronal and sagittal ref ormats through the abdomen and pelvis. All CT scans at [facility] use at least one of these d ose optimization techniques: automated exposure control; mA and/or kV adjustment per patient size (in cludes targeted exams where dose is matched to clinical indication); or iterative reconstruction. CONTRAST: Omnipaque 350; 95 mL IV. DLP: 1436.78 mGy.cm COMPARISON: 11/10/2019, 09/09/[address]: Mildly hyperinflated lungs. There are a few small cysts noted within the central RIGHT lung and extending into the RIGHT lower lobe. These were present on the prior study. Benign granuloma in the periphery at the lingula. No suspicious nodule or mass. Very minimal atherosclerosis aorta. Jessie l size pulmonary artery. 10 mm RIGHT hilar lymph node. Heart size is normal. There is a small amount of debris in the distal RIGHT trachea. No destructive process in the thoracic spine. There is a small bone island LEFT scapula near the glenoid. Abdomen CT: Liver and spleen are normal. Prior cholecystectomy. Normal enhancement of the portal vein . Normal pancreas. Mild atherosclerotic changes within the abdominal aorta. No aneurysm. Good enhance ment of the mesenteric arteries. No renal obstruction or solid mass. There are very small hypodensiti es within each kidney which are too small to characterize. Stomach is not distended. Variable density within the stomach. No beginning in the mid descending col on there is circumferential and or near circumferential colonic wall thickening with adjacent edema. There are also numerous diverticula. Seen on image 51 of series 5 is asymmetric thickening. Underlyin g neoplasm is not excluded. There is narrowing of the lumen and adjacent diverticula. Distally there are additional diverticula without acute inflammation. Small bowel obstruction. Numerous diverticula in the descending colon. Pelvic CT: No free fluid in the pelvis. Enlarged prostate gland and heterogeneity. Well-distended uri nary bladder. Again noted are numerous diverticula in the sigmoid colon distally. CT/CT chest abd pel w con* IMPRESSION: 1. Numerous diverticula involving the descending colon. 2. Focal asymmetric wall thickening with adjacent pericolonic stranding involv ing the mid descending colon. There is abnormal enhancement in the mucosa and s ubmucosa. This may be an area of acute diverticulitis as there are adjacent div erticula. Neoplasm needs to be excluded. Recommend colonoscopy to exclude neopl asm. 3. No adenopathy. 4. Mild atherosclerotic changes within the aorta. 5. Prior cholecystectomy.
== END 2021-06-27 11:18 | disposition home or self-care (01) ==
PROVIDERS: PCP Family Medicine; Visit Provider Internal Medicine
DX: B19.20 Unspecified viral hepatitis C without hepatic coma (principal); M06.9 Rheumatoid arthritis, unspecified; R76.8 Other specified abnormal immunological findings in serum; K57.30 Diverticulosis of large intestine without perforation or abscess without bleeding
CPT/HCPCS: 71260; 74177

== ENCOUNTER → 2021-07-09 11:51 | Outpatient (BNVA) | payer MEDICAID, SELFPAY | PROVIDERS: PCP Family Medicine; Referring Provider Internal Medicine; Visit Provider Surgery | DX: R63.4 Abnormal weight loss (principal); R93.89 Abnormal findings on diagnostic imaging of other specified body structures; K62.89 Other specified diseases of anus and rectum; F17.210 Nicotine dependence, cigarettes, uncomplicated | CPT/HCPCS: 99204 ==

== ENCOUNTER 2021-07-09 12:25 | Outpatient (CLI) | payer MEDICAID, SELFPAY ==
[2021-07-09 12:43] LABS: Add Urine Microscopic? NO; Charge for UA Resulting for Rev
[2021-07-09 12:49] LABS: Basophils # 0.1 10^3/uL (0.0-0.1); Basophils % 0.4 %; Eosinophils # 0.1 10^3/uL (0.0-0.8); Eosinophils % 0.4 %; Hematocrit 51.2 % (42.0-52.0); Hemoglobin 17.8 g/dL (11.7-16.6); Lymphocytes # 2.2 10^3/uL (0.8-4.8); Lymphocytes % 16.8 %; Mean Corpuscular HGB Conc 34.8 g/dL (30.0-36.0); Mean Corpuscular Hemoglobin 32.5 pg (28.0-34.0); Mean Corpuscular Volume 93.6 fl (80-94); Monocytes # 0.8 10^3/uL (0.2-0.9); Monocytes % 6.1 %; Neutrophils # 10.01 10^3/uL (1.8-7.7); Neutrophils % 75.8 %; Nucleated Red Blood Cells % 0 %; Platelet Count 348 10^3/cmm (130-400); Red Blood Count 5.47 10^6/uL (4.1-5.3); Red Cell Distribution Width 12.7 % (12.1-15.1); White Blood Count 13.2 10^3/uL (4.0-10.0)
[2021-07-09 13:01] LABS: Urine Color Dark Yellow (Yellow)
[2021-07-09 13:02] LABS: Bilirubin Urine Neg (Negative); Blood Urine Neg (Negative); Glucose Urine UA Norm (Normal); Ketones Urine Negative (Negative); Nitrate Urine Negative (Negative); Protein Urine Neg (Negative); Specific Gravity, Urine 1.025 (1.005-1.030); Urine Appearance Clear (CLEAR); pH Urine 5 (5-7)
[2021-07-09 13:03] LABS: Leukocyte Esterase Urine Negative (Negative); Urobilinogen Urine Norm (Negative)
[2021-07-09 13:12] LABS: Alanine Aminotransferase 20 U/L (0-41); Alkaline Phosphatase 88 IU/L (40-130); Anion Gap 14.5 (5-19); Aspartate Amino Transferase 20 U/L (0-40); Blood Urea Nitrogen 13 mg/dL (6-20); Calcium 9.8 mg/dL (8.5-10.5); Carbon Dioxide 26 mmol/L (22-29); Chloride 101 mmol/L (98-107); Complement C3 122 mg/dL (90-180); Globulin 2.4 g/dL (1.3-4.6); Glomerular Filtration Rate 78.2 mL/min (90-130); Glucose 114 mg/dL (65-115); Osmolality Calculated 285 mOsm/kg (285-295); Potassium 4.5 mmol/L (3.5-5.1); Sodium 137 mmol/L (136-145); Total Bilirubin 0.3 mg/dL (0.15-1.2); Total Protein 7.4 g/dL (6.6-8.7)
[2021-07-09 13:36] LABS: Erythrocyte Sedimentation Rate 12 mm/hr (0-10)
== END 2021-07-09 12:26 | disposition home or self-care (01) ==
LOC: LAB 12:26
PROVIDERS: PCP Family Medicine; Visit Provider Internal Medicine
DX: M06.9 Rheumatoid arthritis, unspecified (principal); R76.8 Other specified abnormal immunological findings in serum; Z79.899 Other long term (current) drug therapy
CPT/HCPCS: 80053; 81003; 85025; 85651; 86140; 86160

== ENCOUNTER 2021-07-18 12:08 | Day surgery (SDC) | payer MEDICAID, SELFPAY ==
[2021-07-16 13:11] VITALS: BMI 21.9
--- NOTE | 2021-07-18 12:25 | P.HP_ITS ---
Same Day Surgery H&P Indication for Procedure/HPI DATE OF PROCEDURE: July 18, 2021 CHIEF COMPLAINT/INDICATIONFOR SURGICAL PROCEDURE: EGD colonoscopy PREOP DIAGNOSIS: Weight loss PLANNED PROCEDURE: Operation Date: 07/18/21 13:40 Proposed Procedures p EGD [id number]/k62.89/r63.4(Not Applicable) - Ronnie Rainey MD s Colonoscopy(Not Applicable) - Ronnie Rainey MD s excision of perianal skin tag(Not Applicable) - Ronnie Rainey MD Medications/Allergies* Home Medications Medication Instructions Recorded Confirmed Type alprazolam 2 mg tablet 2 mg PO QID PRN 05/09/19 07/16/21 History pantoprazole 40 mg tablet,delayed 40 mg PO DAILY 05/28/20 07/16/21 History release (Protonix) aspirin 325 mg tablet 325 mg PO DAILY PRN 04/08/21 07/16/21 History gabapentin 600 mg tablet 600 mg PO BID PRN tab 04/08/21 07/16/21 History hydrocodone 7.5 mg-acetaminophen 1 tab PO QID PRN tab 04/08/21 07/16/21 History 325 mg tablet ibuprofen 800 mg tablet 800 mg PO BID tab 04/08/21 07/16/21 History Allergies/Adverse Reactions Allergy/AdvReac Type Severity Reaction Status Date / Time cyclobenzaprine Allergy Intermediate nausea/vomi Verified 07/16/21 13:02 ting oxycodone [From Percocet] Allergy ADR-Nausea Verified 07/16/21 13:02 tramadol Allergy ADR-Headach Verified 07/16/21 13:02 e venlafaxine [From Effexor] Allergy ADR-Confusi Verified 07/16/21 13:02 on Pertinent History/Comorbid Conditions* Medical History (Updated 05/07/21 @ 16:49 by Ludin Glaser MD) Cervical disc disease Chronic hepatitis C Chronic migraine Depression Lumbar disc disease with radiculopathy Spondylolisthesis of cervical region Surgical History (Updated 07/09/21 @ 12:09 by Ronnie Rainey MD) H/O hernia repair History of back surgery History of cholecystectomy History of colonoscopy 2 yrs ago History of esophagogastroduodenoscopy 2 yrs ago Family History (Updated 04/08/21 @ 11:35 by Angela Sanders LPN) Diabetes Mother Brother Heart disease Father Heart attack Father Cancer Mother Hypertension Mother Father Stroke Mother Denies family history of Rheumatoid arthritis Lupus Hyperlipidemia Social History Smoking and tobacco status: current some day smoker cigarettes Alcohol intake: never Household members: none Marital status: / Current occupational status: unemployed History of recent travel: No Pertinent Exam Findings alert, oriented x 3 and regular rate & rhythm Recommendations Surgery/Procedure today Coding Level of Care Code Acute [employer] Supervisor for Braden Duffy
[2021-07-18 12:35] VITALS: BP 120/99; PULSE 105; RESP 18; TEMP 36.6; O2SAT 96
[2021-07-18] MEDS: sodium chloride 0.9% 1,000 ML 30 ML IV (12:41)
--- NOTE | 2021-07-18 12:54 | ANES.PREANE2 ---
Pre-Anesthetic Assessment Height/Weight: Height 1.83 m Weight 73.482 kg Temp Pulse Resp BP Pulse Ox 97.8 F 105 H 18 120/99 96 07/18/21 12:35 07/18/21 12:35 07/18/21 12:35 07/18/21 12:35 07/18/21 12:35 Preop Diagnosis: Weight loss Operation Date: 07/18/21 13:40 Proposed Procedures p EGD 70901/[id number]/k62.89/r63.4(Not Applicable) - Ronnie Rainey MD s Colonoscopy(Not Applicable) - Ronnie Rainey MD s excision of perianal skin tag(Not Applicable) - Ronnie Rainey MD Familial anesthetic complications: None Was Beta Rocio taken within 24 hours: N/A Was Clonidine taken within 24 hours: N/A Last intake: Intake Last Liquid Date 07/17/21 Last Liquid Time 17:00 Last Solid Date 07/16/21 Last Solid Time 17:00 Social Tobacco and No alcohol Exam alert, oriented x 3 and regular rate & rhythm Airway Submandibular: within normal limits Cervical ROM: within normal limits Mallampati: Class II Dentition: chipped Comments: Comments: Very poor dentition, multiple chipped and missing CV/HEM Polycythemia Hepatic Hepatitis (C) Musc/skel Lower Back Pain and Rheumatoid Arthritis chronic pain/opioid Neuropsych Anxiety Anesthetic Plan ASA status: 3 Anesthesia: Choice Medications/Allergies Home Medications Medication Instructions Recorded Confirmed Last Taken Type alprazolam 2 mg tablet 2 mg PO QID PRN 05/09/19 07/18/21 07/17/21 History pantoprazole 40 mg tablet,delayed 40 mg PO DAILY 05/28/20 07/18/21 07/17/21 History release (Protonix) epinephrine 0.3 mg/0.3 mL 0.3 mg (0.3 mL) IM Q30M PRN #2 ea 11/20/20 07/16/21 Unknown Rx injection, auto-injector (EpiPen 2-Garrick) aspirin 325 mg tablet 325 mg PO DAILY PRN 04/08/21 07/18/21 Unknown History gabapentin 600 mg tablet 600 mg PO BID PRN tab 04/08/21 07/18/21 07/17/21 History hydrocodone 7.5 mg-acetaminophen 1 tab PO QID PRN tab 0107/18/21 07/18/21 History 325 mg tablet ibuprofen 800 mg tablet 800 mg PO BID tab 04/08/21 07/16/21 Unknown History hydroxychloroquine 200 mg tablet 200 mg PO BID #60 tab 05/07/21 07/16/21 Unknown Rx Allergies Allergy/AdvReac Type Severity Reaction Status Date / Time cyclobenzaprine Allergy Intermediate nausea/vomi Verified 07/16/21 13:02 ting oxycodone [From Percocet] Allergy ADR-Nausea Verified 07/16/21 13:02 tramadol Allergy ADR-Headach Verified 07/16/21 13:02 e venlafaxine [From Effexor] Allergy ADR-Confusi Verified 07/16/21 13:02 on Current Medications Generic Name Dose Route Start Last Admin Trade Name Freq PRN Reason Stop Dose Admin Sodium Chloride 1,000 mls @ 30 mls/hr 07/18/21 12:30 07/18/21 12:41 Sodium Chloride 0.9% IV 07/19/21 12:29 30 mls/hr .Q24H RINKU Administration PFSH Anesthesia Medical History Cervical disc disease Chronic hepatitis C Chronic migraine Depression Lumbar disc disease with radiculopathy Spondylolisthesis of cervical region Surgical History H/O hernia repair History of back surgery History of cholecystectomy History of colonoscopy 2 yrs ago History of esophagogastroduodenoscopy 2 yrs ago Family History Mother Diabetes Cancer Hypertension Stroke Father Heart disease Heart attack Hypertension Brother Diabetes Denies family history of Rheumatoid arthritis Lupus Hyperlipidemia Social History Smoking and tobacco status: current some day smoker cigarettes Alcohol intake: never Household members: none Marital status: / Current occupational status: unemployed History of recent travel: No Data Anesthesia Cardiac Studies: No Data to Display
[2021-07-18] MEDS: lidocaine 2% INJ 20 mL INJECTION (13:43)
[2021-07-18 13:50] VITALS: BP 149/107; PULSE 87; RESP 12; TEMP 36.2; O2SAT 97
[2021-07-18 13:55] VITALS: BP 159/104; PULSE 80; RESP 16; O2SAT 98
[2021-07-18 14:00] VITALS: BP 141/104; PULSE 82; RESP 16; O2SAT 97
[2021-07-18 14:05] VITALS: BP 140/98; PULSE 80; RESP 18; TEMP 36.8; O2SAT 9
--- NOTE | 2021-07-18 14:08 | PM.OP ---
Operative Report Date of procedure: July 18, 2021 Pre-op diagnosis: Weight loss CT chest abdomen pelvis showed thickening of the descending colon likely secondary to diverticulitis Post-op diagnosis: 1. Normal EGD 2. Moderate sigmoid diverticulosis 3. Perianal skin lesion measuring 1 x 1 cm Procedure done: 1. Esophagogastroduodenoscopy without biopsy 2. Colonoscopy past splenic flexure without biopsy 3. Excision of perianal skin lesion measuring 1 x 1 cm Specimens removed/disposition: Perianal skin lesion Surgeon: Ronnie Rainey Condition: stable Disposition: PACU Procedure: The patient was taken to the operating room and placed in left lateral position under MAC and a bite block was placed. A gastroscope was introduced and advanced up to second portion of the duodenum and slowly withdrawn. Duodenum second portion: Normal Duodenal bulb: Normal Stomach Fundus: Normal body: Normal Antrum: Normal Pylorus: Normal Esophagus GE junction: Normal at 40 cm Rest of esophagus: Normal The colonoscopy slowly advanced to the cecum and slowly withdrawn. The colon prep was fair. Cecum: Normal Ascending colon: Normal Transverse colon: Normal Descending colon: Normal Sigmoid colon: Moderate sigmoid diverticulosis Rectum: Grade 1 internal hemorrhoids IVAN: Grade 1 internal hemorrhoids The perianal area was prepped and draped in sterile manner. 1 x 1 cm skin lesion was excised using electrocautery after the base was injected with 2% lidocaine. Hemostasis ensured with cautery. Dressings were applied. Patient tolerated procedure well
[2021-07-18 14:55] VITALS: BP 144/92; PULSE 82; RESP 14; TEMP 36.8; O2SAT 98
--- NOTE | 2021-07-18 14:58 | ANE.PACU2 ---
Inpatient post-anesthesia follow up: Airway intact: Yes Vital signs: Temperature 98.2 F Pulse Rate 80 Respiratory Rate 18 Blood Pressure 140/98 Pulse Oximetry 9 Oxygen Delivery Me thod Room Air Oxygen Flow Rate 6 Fraction of Inspir ed Oxygen Hydration adequate: Yes Nausea and vomiting: No Pain level: 2 Mental status: Baseline
== END 2021-07-18 15:00 | disposition home or self-care (01) ==
PROVIDERS: PCP Family Medicine; Visit Provider Surgery
PROC: 0DJ08ZZ Inspection of Upper Intestinal Tract, Via Natural or Artificial Opening Endoscopic (ICD-10-PCS; CPT 43235; principal; 2021-07-18 13:30)
PROC: 0DJD8ZZ Inspection of Lower Intestinal Tract, Via Natural or Artificial Opening Endoscopic (ICD-10-PCS; CPT 45378; 2021-07-18 13:30)
PROC: (CPT 46040; 2021-07-18 13:30)
DX: K62.89 Other specified diseases of anus and rectum (principal); R63.4 Abnormal weight loss; K57.30 Diverticulosis of large intestine without perforation or abscess without bleeding; K64.8 Other hemorrhoids; Z68.22 Body mass index [BMI] 22.0-22.9, adult; Z79.82 Long term (current) use of aspirin; Z86.19 Personal history of other infectious and parasitic diseases; F32.9 Major depressive disorder, single episode, unspecified; F17.210 Nicotine dependence, cigarettes, uncomplicated
CPT/HCPCS: 43235; 45378; 46922; 88304; J0690; J2250; J2704; J3010; J7030

== ENCOUNTER → 2021-08-06 12:41 | Outpatient (BNVA) | payer MEDICAID, SELFPAY | PROVIDERS: PCP Family Medicine; Visit Provider Internal Medicine | DX: M06.9 Rheumatoid arthritis, unspecified (principal); M50.90 Cervical disc disorder, unspecified, unspecified cervical region; R76.8 Other specified abnormal immunological findings in serum; B19.20 Unspecified viral hepatitis C without hepatic coma; Z79.899 Other long term (current) drug therapy; F17.210 Nicotine dependence, cigarettes, uncomplicated; L98.9 Disorder of the skin and subcutaneous tissue, unspecified | CPT/HCPCS: 99212; 99214 ==

== ENCOUNTER 2021-08-13 15:06 | Outpatient (CLI) | payer MEDICAID, SELFPAY ==
--- NOTE | 2021-08-13 15:15 | MR_ITS ---
WS: [id number] MRI LUMBAR SPINE NONCONTRAST HISTORY: Low back pain, chronic down leg. COMPARISON: 02/15/2020. TECHNIQUE: Sagittal and axial multisequence imaging is submitted. Normal lumbar alignment with no compression fractures or marrow edema. Mild disc space narrowing and desiccation at L4-5. No fracture or marrow edema. Conus terminates normally at L1-2 disc level. L1-L2: Normal. L2-L3: Very tiny central disc protrusion with no stenosis. L3-L4: Mild disc bulging with mild ligamentum flavum hypertrophy and facet arthritis. Mild encroachme nt with no significant stenosis into the lateral recesses. RIGHT foraminal disc protrusion is smaller size than on the prior study. No contact on the nerve roots. L4-L5: Mild annular disc bulge with a moderate size central disc protrusion. Disc protrusion is simil ar in size to the prior examination. Disc protrusion is contacting the L5 nerve roots. Mild ligamentu m flavum disease and facet arthritis. Small amount of fluid in the RIGHT facet joint. There is encroa chment and narrowing of the lateral recesses. L5-S1: Mild annular disc bulging. Very tiny central disc protrusion similar to the prior study. Shall ow LEFT foraminal disc protrusion with mild contact on the undersurface of the LEFT exiting L5 nerve root. Similar to the prior study. Subcentimeter RIGHT renal cyst. MR/MR lumbar spine wo con* [id number] IMPRESSION: 1. Moderate size central disc protrusion at L4-5 similar to the prior study. C auses mild narrowing of the lateral recesses and encroachment upon the L5 nerve roots. 2. Shallow LEFT foraminal disc protrusion at L5-S1 with mild contact on the un dersurface of the LEFT exiting L5 nerve root. 3. Minimal encroachment upon the lateral recesses at L3-4 with no stenosis.
--- NOTE | 2021-08-13 16:00 | MR_ITS ---
WS: [id number] MRI CERVICAL SPINE NONCONTRAST HISTORY: M43.12 - Spondylolisthesis, cervical region COMPARISON: 02/15/2020 Technique: Multiplanar, multisequence noncontrast imaging of the cervical spine. C3 retrolisthesis by less than 2 mm. C7 anterolisthesis by less than 2 mm. Mild increase in the lordo sis. Very mild anterior wedging of T5 is stable. No marrow edema or acute fracture. Craniocervical junction, C1 and C2 relationship, odontoid process and soft tissues are normal. C2-C3: Normal. C3-C4: Central disc protrusion and osteophytic ridging. No significant stenosis. C4-C5: Shallow central disc protrusion. No stenosis. C5-C6: Minimal osteophytic ridging with no stenosis. C6-C7: No stenosis. No disc protrusion. C7-T1: Mild facet joint arthritis encroaching into the posterior lateral thecal sac greatest on the R IGHT. Bilateral proximal foraminal disc protrusions or osteophytes causing mild foraminal narrowing. Similar to the prior study. Paraspinal soft tissue are normal. MR/MR cervical spin wo con* [id number] IMPRESSION: 1. Less than 2 mm retrolisthesis of C3 and anterolisthesis of C7. 2. No high-grade central stenosis. 3. Facet and osteophyte encroachment into the posterior lateral RIGHT thecal s ac at the C7-T1 level. Similar to the prior study. 4. Shallow central disc protrusions at C3-4 and C4-5.
== END 2021-08-13 15:07 | disposition home or self-care (01) ==
PROVIDERS: PCP Family Medicine; Visit Provider Orthopaedic Surgery
DX: M48.062 Spinal stenosis, lumbar region with neurogenic claudication (principal); M43.12 Spondylolisthesis, cervical region; M51.16 Intervertebral disc disorders with radiculopathy, lumbar region; M47.816 Spondylosis without myelopathy or radiculopathy, lumbar region; M51.26 Other intervertebral disc displacement, lumbar region
CPT/HCPCS: 72141; 72148

== ENCOUNTER 2021-08-22 14:33 | Outpatient (CLI) | payer MEDICAID, SELFPAY ==
--- NOTE | 2021-08-22 14:48 | XR_ITS ---
WS: [id number] Exam: XR shoulder RT min 2V* [id number] Date/Time of Exam: 08/22/2021 2:48 PM Reason For Exam: R SHOULDER PAIN No fracture or dislocation noted. There is arthrosis and bone spurring at the AC joint. Soft tissues appear normal. XR/XR shoulder RT min 2V* [id number] IMPRESSION: 1. No fracture or dislocation. 2. Bone spurs seen along the inferior margin of the distal clavicle and the acr omion with arthrosis at the AC joint.
== END 2021-08-22 14:34 | disposition home or self-care (01) ==
PROVIDERS: PCP Family Medicine; Visit Provider Nurse Practitioner Family
DX: M25.511 Pain in right shoulder (principal); M19.011 Primary osteoarthritis, right shoulder; M75.91 Shoulder lesion, unspecified, right shoulder
CPT/HCPCS: 73030

== ENCOUNTER → 2021-08-27 14:52 | Outpatient (BNVA) | payer MEDICAID, SELFPAY | PROVIDERS: PCP Family Medicine; Visit Provider Orthopaedic Surgery | DX: M48.062 Spinal stenosis, lumbar region with neurogenic claudication (principal) | CPT/HCPCS: 99213 ==

== ENCOUNTER 2021-09-11 16:12 | Outpatient (CLI) | payer MEDICAID, SELFPAY ==
[2021-09-11 16:46] LABS: Basophils % 0.4 %; Eosinophils # 0.1 10^3/uL (0.0-0.8); Eosinophils % 0.9 %; Hematocrit 45.4 % (42.0-52.0); Hemoglobin 15.4 g/dL (11.7-16.6); Lymphocytes # 1.7 10^3/uL (0.8-4.8); Lymphocytes % 23.9 %; Mean Corpuscular HGB Conc 33.9 g/dL (30.0-36.0); Mean Corpuscular Hemoglobin 31.2 pg (28.0-34.0); Mean Corpuscular Volume 91.9 fl (80-94); Mean Platelet Volume 9.5 fL (7.4-10.4); Monocytes # 0.4 10^3/uL (0.2-0.9); Monocytes % 5.1 %; Neutrophils # 4.78 10^3/uL (1.8-7.7); Neutrophils % 69.4 %; Nucleated Red Blood Cells % 0 %; Platelet Count 266 10^3/cmm (130-400); Red Blood Count 4.94 10^6/uL (4.1-5.3); Red Cell Distribution Width 12.2 % (12.1-15.1); White Blood Count 6.9 10^3/uL (4.0-10.0)
[2021-09-11 16:58] LABS: Alanine Aminotransferase 15 U/L (0-41); Albumin Level 4.4 g/dL (3.5-5.2); Alkaline Phosphatase 69 IU/L (40-130); Anion Gap 14.3 (5-19); Aspartate Amino Transferase 14 U/L (0-40); Blood Urea Nitrogen 14 mg/dL (6-20); Calcium 8.9 mg/dL (8.5-10.5); Carbon Dioxide 25 mmol/L (22-29); Chloride 102 mmol/L (98-107); Globulin 2.9 g/dL (1.3-4.6); Glomerular Filtration Rate 88.3 mL/min (90-130); Glucose 124 mg/dL (65-115); Osmolality Calculated 286 mOsm/kg (285-295); Potassium 4.3 mmol/L (3.5-5.1); Sodium 137 mmol/L (136-145); Total Bilirubin 0.2 mg/dL (0.15-1.2); Total Protein 7.3 g/dL (6.6-8.7)
== END 2021-09-11 16:13 | disposition home or self-care (01) ==
LOC: LAB 16:15
PROVIDERS: PCP Family Medicine; Visit Provider Internal Medicine
DX: B19.20 Unspecified viral hepatitis C without hepatic coma (principal); M06.9 Rheumatoid arthritis, unspecified; R76.8 Other specified abnormal immunological findings in serum
CPT/HCPCS: 36415; 80053; 85025

== ENCOUNTER 2021-10-08 12:08 | Outpatient (CLI) | payer MEDICAID, SELFPAY ==
--- NOTE | 2021-10-08 12:18 | XR_ITS ---
WS: [id number] Right arm and humerus, 2 views, 10/08/2021 Clinical Data: R ARM PAIN Comparison: None. Findings: No fractures or dislocations are seen. The shaft of the humerus is intact. The soft tissues of the r ight arm are normal. XR/[place] [id number] Impression: Negative right arm and humerus.
== END 2021-10-08 12:09 | disposition home or self-care (01) ==
LOC: RAD 12:08
PROVIDERS: PCP Family Medicine; Visit Provider Family Medicine
DX: M79.601 Pain in right arm (principal)
CPT/HCPCS: 73060

== ENCOUNTER 2021-10-24 13:45 | Outpatient (CLI) | payer MEDICAID, SELFPAY ==
[2021-10-24 14:30] LABS: Basophils % 0.2 %; Eosinophils # 0.1 10^3/uL (0.0-0.8); Eosinophils % 0.5 %; Hematocrit 48.8 % (42.0-52.0); Hemoglobin 17.4 g/dL (11.7-16.6); Lymphocytes # 2.5 10^3/uL (0.8-4.8); Mean Corpuscular HGB Conc 35.7 g/dL (30.0-36.0); Mean Corpuscular Hemoglobin 32.1 pg (28.0-34.0); Mean Platelet Volume 9.3 fL (7.4-10.4); Monocytes # 0.6 10^3/uL (0.2-0.9); Monocytes % 5.6 %; Neutrophils % 68.4 %; Nucleated Red Blood Cells % 0 %; Platelet Count 271 10^3/cmm (130-400); Red Blood Count 5.42 10^6/uL (4.1-5.3); Red Cell Distribution Width 12.4 % (12.1-15.1); White Blood Count 10.1 10^3/uL (4.0-10.0)
[2021-10-24 14:37] LABS: Erythrocyte Sedimentation Rate 7 mm/hr (0-10)
[2021-10-24 15:00] LABS: Alanine Aminotransferase 20 U/L (0-41); Alkaline Phosphatase 79 IU/L (40-130); Anion Gap 15.1 (5-19); Aspartate Amino Transferase 17 U/L (0-40); Blood Urea Nitrogen 9 mg/dL (6-20); Calcium 9.3 mg/dL (8.5-10.5); Carbon Dioxide 25 mmol/L (22-29); Chloride 100 mmol/L (98-107); Globulin 2.7 g/dL (1.3-4.6); Glomerular Filtration Rate 88.3 mL/min (90-130); Glucose 112 mg/dL (65-115); Osmolality Calculated 281 mOsm/kg (285-295); Potassium 4.1 mmol/L (3.5-5.1); Sodium 136 mmol/L (136-145); Total Bilirubin 0.3 mg/dL (0.15-1.2); Total Protein 7.7 g/dL (6.6-8.7)
== END 2021-10-24 13:46 | disposition home or self-care (01) ==
LOC: LAB 13:47
PROVIDERS: PCP Family Medicine; Visit Provider Internal Medicine
DX: M06.9 Rheumatoid arthritis, unspecified (principal); Z79.899 Other long term (current) drug therapy
CPT/HCPCS: 36415; 80053; 85025; 85651; 86140

== ENCOUNTER → 2021-11-07 14:47 | Outpatient (BNVA) | payer MEDICAID, SELFPAY | PROVIDERS: PCP Family Medicine; Visit Provider Internal Medicine | DX: M06.9 Rheumatoid arthritis, unspecified (principal); M48.062 Spinal stenosis, lumbar region with neurogenic claudication; R76.8 Other specified abnormal immunological findings in serum; M19.90 Unspecified osteoarthritis, unspecified site; M79.7 Fibromyalgia; Z86.19 Personal history of other infectious and parasitic diseases | CPT/HCPCS: 99214 ==

== ENCOUNTER 2021-12-11 12:32 | Emergency (ER) | payer MEDICAID, SELFPAY ==
[2021-12-11 12:56] VITALS: BP 144/90; PULSE 105; RESP 18; TEMP 36.6; O2SAT 96; BMI 24.4
[2021-12-11 15:35] VITALS: BP 157/96; PULSE 85; RESP 16; O2SAT 97
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
[2021-12-11 16:11] LABS: Add Urine Microscopic? NO; Charge for UA Resulting for Rev
[2021-12-11 16:26] LABS: Bilirubin Urine Neg (Negative); Blood Urine Neg (Negative); Glucose Urine UA Norm (Normal); Ketones Urine Negative (Negative); Leukocyte Esterase Urine Negative (Negative); Nitrate Urine Negative (Negative); Protein Urine Neg (Negative); Urine Appearance Clear (CLEAR); Urine Color Colorless (Yellow); Urobilinogen Urine Norm (Negative); pH Urine 5 (5-7)
[2021-12-11 16:34] LABS: Basophils % 0.2 %; Eosinophils % 0.4 %; Hematocrit 54.3 % (42.0-52.0); Hemoglobin 18.2 g/dL (11.7-16.6); Lymphocytes # 2.4 10^3/uL (0.8-4.8); Lymphocytes % 24.6 %; Mean Corpuscular HGB Conc 33.5 g/dL (30.0-36.0); Mean Corpuscular Hemoglobin 31.8 pg (28.0-34.0); Mean Corpuscular Volume 94.8 fl (80-94); Mean Platelet Volume 9.5 fL (7.4-10.4); Monocytes # 0.4 10^3/uL (0.2-0.9); Neutrophils # 6.89 10^3/uL (1.8-7.7); Neutrophils % 70.6 %; Nucleated Red Blood Cells % 0 %; Platelet Count 263 10^3/cmm (130-400); Red Blood Count 5.73 10^6/uL (4.1-5.3); Red Cell Distribution Width 12.5 % (12.1-15.1); White Blood Count 9.8 10^3/uL (4.0-10.0)
--- NOTE | 2021-12-11 17:32 | ECG_ITS ---
[facility] Test Date: 2021-12-11 Pat Name: Guille Russ Department: Room: Gender: Male Federal Law Clerk: : 1965 Requested By: Thiago Aviles Order Number: [id number] Claros MD: Nitin Shaw M.D. Measurements Intervals [place] Rate: 80 P: 74 [place]: 181 QRS: 8 QRSD: 94 T: 68 QT: 340 QTc: 394 Interpretive Statements SINUS RHYTHM Compared to ECG 02/20/2021 19:38:15 ST (T wave) deviation no longer present Electronically Signed On 12-12-2021 10:34:01 CDT by Nitin Shaw M.D. [email or web address] [facility] hospitalAproMed Corpcherrington [email or web address]/[id number]
[2021-12-11 17:44] LABS: Alanine Aminotransferase 21 U/L (0-41); Albumin Level 5.1 g/dL (3.5-5.2); Alkaline Phosphatase 95 U/L (40-130); Aspartate Amino Transferase 21 U/L (0-40); Blood Urea Nitrogen 6 mg/dL (6-20); Calcium 9.8 mg/dL (8.5-10.5); Carbon Dioxide 30 mmol/L (22-29); Chloride 98 mmol/L (98-107); Globulin 3.3 g/dL (1.3-4.6); Glomerular Filtration Rate 87.9 mL/min (90-130); Glucose 106 mg/dL (65-115); Osmolality Calculated 286 mOsm/kg (285-295); Sodium 139 mmol/L (136-145); Total Bilirubin 0.5 mg/dL (0.15-1.2); Total Protein 8.4 g/dL (6.6-8.7)
[2021-12-11 17:46] LABS: Anion Gap 14.9 (5-19); Potassium 3.9 mmol/L (3.5-5.1)
[2021-12-11 17:54] VITALS: BP 134/87; PULSE 87; RESP 16; O2SAT 98
[2021-12-11 17:59] LABS: Amphetamines Screen Urine Negative (Negative); Barbiturates Screen Urine Negative (Negative); Benzodiazepines Screen Urine Positive (Negative); Cocaine Screen Urine Negative (Negative); Opiate Screen Urine Positive (Negative); PCP Screen Urine Negative (Negative); THC Screen Urine Negative (Negative)
== END 2021-12-11 18:18 | disposition home or self-care (01) ==
PROVIDERS: Emergency Provider Physician Assistant; PCP Family Medicine
DX: M54.50 Low back pain, unspecified (principal); R51.9 Headache, unspecified; M25.511 Pain in right shoulder; R20.0 Anesthesia of skin; F17.210 Nicotine dependence, cigarettes, uncomplicated; V89.2XXA Person injured in unspecified motor-vehicle accident, traffic, initial encounter; Y92.488 Other paved roadways as the place of occurrence of the external cause
CPT/HCPCS: 70450; 72100; 73030; 80053; 80306; 81003; 85025; 93005; 99285

== ENCOUNTER → 2021-12-18 14:25 | Outpatient (BNVA) | payer MEDICAID, SELFPAY | PROVIDERS: PCP Family Medicine; Referring Provider Internal Medicine; Visit Provider Specialist | DX: R20.0 Anesthesia of skin (principal); R20.2 Paresthesia of skin | CPT/HCPCS: 95908; 95909 ==

== ENCOUNTER → 2022-01-16 14:34 | Outpatient (BNVA) | payer MEDICAID, SELFPAY | PROVIDERS: PCP Family Medicine; Visit Provider Nurse Practitioner Family | DX: R42 Dizziness and giddiness (principal); R53.1 Weakness; R35.1 Nocturia | CPT/HCPCS: 80053; 81000; 84153; 87086 ==

== ENCOUNTER → 2022-03-03 13:58 | Outpatient (BNVA) | payer MEDICAID, SELFPAY | PROVIDERS: PCP Family Medicine; Visit Provider Internal Medicine | DX: M06.9 Rheumatoid arthritis, unspecified (principal); R76.8 Other specified abnormal immunological findings in serum; M48.062 Spinal stenosis, lumbar region with neurogenic claudication; Z11.59 Encounter for screening for other viral diseases; Z86.19 Personal history of other infectious and parasitic diseases | CPT/HCPCS: 36415; 80053; 85025; 85651; 86140; 87522; 99213 ==

== ENCOUNTER 2022-06-25 11:14 | Emergency (ER) | payer MEDICAID, SELFPAY ==
[2022-06-25 11:18] VITALS: BP 142/88; PULSE 110; RESP 18; TEMP 36.7; O2SAT 98; BMI 24.4
--- NOTE | 2022-06-25 11:29 | ECG_ITS ---
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 Measurements Intervals [place] Rate: 93 P: 64 [place]: 173 QRS: -63 QRSD: 90 T: 57 QT: 324 QTc: 403 Interpretive Statements SINUS RHYTHM PATTERN CONSISTENT WITH PULMONARY DISEASE LEFT ANTERIOR FASCICULAR BLOCK [QRS AXIS <= -45, QR IN I, RS IN II] Compared to ECG 12/11/2021 17:49:03 Left anterior fascicular block now present Electronically Signed On 06-25-2022 23:53:08 CDT by Serge Almeida M.D. [email or web address].[employer]/store/[id number]
--- NOTE | 2022-06-25 11:29 | XR_ITS ---
WS: [id number] Exam: XR chest 1V portable [id number] Date/Time of Exam: 06/25/2022 11:32 AM Reason For Exam: cp Comparison 02/20/2021. A semilunar soft tissue density seen along the right diaphragm is a new finding. The lungs are otherw ise clear. Normal cardiomediastinal silhouette and regional bony elements. No pleural effusions. XR/XR chest 1V portable [id number] IMPRESSION: 1. Semilunar soft tissue mass along the right diaphragm which is a new finding. This may represent a subpulmonic mass or fluid collection. Eventration of the diaphragm or diaphragmatic hernia might have similar appearance. The remainder of the chest is negative. Recommendation: Contrast CT scanning of the chest recommended for follow-up.
--- NOTE | 2022-06-25 11:42 | ED_ITS ---
HPI - Chest Pain General: Chief Complaint: Chest Pain Stated Complaint: chest pain Time Seen by Provider: 06/25/22 11:28 Source: patient Mode of arrival: ambulatory Limitations: no limitations History of Present Illness: Patient came to the emergency department as suggested by his primary care office. He states that yesterday he had chest discomfort heaviness or pressure feeling in his anterior chest that lasted most of the day. He states he felt fatigued most of the day as well. He states he did not sleep well last night and did not fall to his back to sleep until early this morning. He went to the doctor's office today who referred him to the emergency department. He states he still has some mild heaviness in his chest. He states there is some association with back pain as well. He denies any fevers or chills or cough or other symptoms. He states he does not have any known history of coronary artery disease or heart rhythm issues. He states at times yesterday he was looking at his pulse ox and meter at home and his heart rate would jump around in terms of its rate. He also felt like his heart was skipping at times yesterday. He has had an occasional extra beat in the past but not to the extent that he experienced yesterday. Not so much today. He does not drink alcohol. He does smoke tobacco but has been reducing his intake. He also relates that he had a black tarry stool yesterday and was concerned about that. He states he does take a proton pump inhibitor for acid reflux. He has noted he does not use alcohol but does use tobacco, he does not use nonsteroidals for aches and pains relatively frequently. Does have family history of atrial fibrillation. Not personally had any known rhythm diagnosis. Quality: heaviness Associated symptoms: Reports palpitations; Deny abdominal pain, dyspnea, fever(s), nausea, syncope or vomiting Treatment prior to arrival: none Risk Factors: Coronary artery disease risk factors: smoking history Review of Systems Const: Denies: fever(s) or chills ENMT: Denies: throat pain or odynophagia Card: Reports: chest pain and palpitations; Denies: syncope or pre-syncope Resp: Denies: dyspnea, productive cough or non-productive cough GI: Reports: melena; Denies: abdominal pain, nausea or vomiting : Denies: flank pain, difficulty urinating or dysuria Musc: Denies: neck pain, back pain, extremity pain or extremity swelling Skin/Breast: Denies: rash Neuro: Denies: headache(s), numbness in extremities or weakness in extremities Raymundo/Lymph: Denies: easy bruising or easy bleeding PFSH ED PFSH: Medical History Cervical disc disease Chronic hepatitis C Chronic migraine Depression Lumbar disc disease with radiculopathy Spondylolisthesis of cervical region Surgical History H/O hernia repair History of back surgery History of cholecystectomy History of colonoscopy (07/18/21) 2 yrs ago History of esophagogastroduodenoscopy (07/18/21) 2 yrs ago Family History Mother Diabetes Cancer Hypertension Stroke Father Heart disease Heart attack Hypertension Brother Diabetes Denies family history of Rheumatoid arthritis Lupus Hyperlipidemia Social History Smoking and tobacco status: current every day smoker cigarettes Alcohol intake: former Household members: none Marital status: / Current occupational status: unemployed Physical Exam Narrative: EXAM NARRATIVE: We will answers questions in a goal-directed and fluent fashion Const: COMMON NORMALS: no acute distress, average body habitus, healthy appearing and alert GENERAL APPEARANCE: cooperative and comfortable HENMT: COMMON NORMALS: normocephalic, Normal nasal mucous membranes and turbinates present, moist oral mucous membranes and oropharynx normal HEAD & SCALP: normocephalic NOSE: Normal nasal mucous membranes and turbinates present Eye: COMMON NORMALS: Equal, round and reactive pupils present, conjunctivae normal and no scleral icterus CONJUNCTIVA: Yes conjunctivae normal PUPIL: Yes Equal, round and reactive pupils present Neck/C-Spine: COMMON NORMALS: full ROM, no meningeal signs, no JVD and No carotid bruits Chest: OTHER: Palpation the anterior chest reveals some reproducible tenderness left and right anterior chest. No ecchymosis, skin rashes etc. Resp: COMMON NORMALS: normal respiratory effort, No use of accessory muscles and clear to auscultation bilaterally AUSCULTATION: clear to auscultation bilaterally Cardio: COMMON NORMALS: no JVD, regular rate, regular rhythm, No murmurs present (Cardio) and Peripheral pulses 2+ throughout RATE: regular rate RHYTHM: regular rhythm PERIPHERAL PULSES: Peripheral pulses 2+ throughout GI: COMMON NORMALS: Normal to inspection, nondistended, normoactive bowel sounds present, Soft to palpation and non-tender PALPATION: Yes Soft to palpation : COMMON NORMALS: Yes no CVA tenderness BLADDER/KIDNEY EXAM: Yes no CVA tenderness Back/Pelvis: COMMON NORMALS: no CVA tenderness, thoracic and lumbar spine normal to inspection, no thoracic nor lumbar tenderness and thoraco-lumbar ROM normal Extremity: COMMON NORMALS: normal to inspection, full ROM, capillary refill normal, no calf tenderness and no pedal edema Neuro: DEIRDRE COMA SCALE: document GCS findings COMMON NORMALS: moves all extremities, no focal motor deficits and no sensory deficits noted SENSORIUM/ORIENTATION: Yes alert MENINGEAL SIGNS: Yes no meningeal signs Psych: COMMON NORMALS: mental status grossly normal Skin: COMMON NORMALS: no rashes or lesions noted and turgor normal GENERAL SKIN EXAM: no rashes or lesions noted and turgor normal Course Reevaluation(s): Reevaluation #1: Initial troponin is reassuring. Chest x-ray findings noted. We will go ahead and proceed with a CT chest at this time to further evaluate suggested pathology. Time: 13:01 Reevaluation #2: Patient continues to be stable without any ongoing symptoms. Reviewed all findings with him. No evidence of ACS, great vessel disease, PE, other intrathoracic pathology at this time. He voices understanding. He is stable to be discharged. We will plan on setting up 7-day ambulatory monitoring because of his symptoms that strongly suggest episodes of palpitation but he has not displayed anything other than unifocal PVCs of an infrequent nature during his e mergency department stay. Time: 14:58 Vital Signs: Vital signs: Vital Signs Temperature 98.0 F 06/25/22 11:18 Pulse Rate 110 H 06/25/22 11:18 Respiratory Rate 18 06/25/22 11:18 Blood Pressure 142/88 06/25/22 11:18 Pulse Oximetry 98 06/25/22 11:18 Oxygen Delivery Me thod 06/25/22 11:18 MDM - Chest Pain Medical Decision Making This gentleman made his way to the emergency department today at the behest of his primary care physician. He apparently had some unusual chest discomfort yesterday associated with what he thought were irregular or additional heartbeats. He perceives this as being a heaviness sensation as well. The symptoms persisted yesterday and he had a few of those same symptoms today and therefore was referred to the emergency department. Is a tobacco user but no known history of coronary disease, arrhythmia etc. His evaluation revealed resting EKGs which had no evidence of his acute changes. He did display occasional unifocal PVCs on monitor on initial presentation but no other sustained or concerning arrhythmias. Serial biomarkers as well were reassuring. Initial chest x-ray had some questionable findings and therefore a contrasted CT was obtained which was very reassuring without any evidence of coronary artery calcification, pulmonary embolus, great vessel disease or other concerning pathology. Patient does not have evidence that suggest that an acute emergency medical condition at this time but will certainly need additional follow-up to ensure that there is no sustained arrhythmias etc. He is being discharged in stable condition and an order was placed for a 7-day event monitor. We also discussed return precautions. Lab Data I reviewed the patient's lab results. 06/25/22 12:05 06/25/22 12:05 Radiology Impressions Chest X-Ray 06/25/22 11:29 IMPRESSION: 1. Semilunar soft tissue mass along the right diaphragm which is a new finding. This may represent a subpulmonic mass or fluid collection. Eventration of the diaphragm or diaphragmatic hernia might have similar appearance. The remainder of the chest is negative. Recommendation: Contrast CT scanning of the chest recommended for follow-up. Chest CT 06/25/22 13:02 IMPRESSION: 1. No abnormalities in the RIGHT lower lobe. 2. Lungs are well aerated. 3. No other acute chest findings. Laboratory Results WBC 11.4 10^3/uL (4.0-10.0) H 06/25/22 12:05 RBC 5.35 10^6/uL (4.1-5.3) H 06/25/22 12:05 Hgb 17.4 g/dL (11.7-16.6) H 06/25/22 12:05 Hct 49.7 % (42.0-52.0) 06/25/22 12:05 MCV 92.9 fl (80-94) 06/25/22 12:05 MCH 32.5 pg (28.0-34.0) 06/25/22 12:05 MCHC 35.0 g/dL (30.0-36.0) 06/25/22 12:05 RDW 13.2 % (12.1-15.1) 06/25/22 12:05 Plt Count 270 10^3/cmm (130-400) 06/25/22 12:05 MPV 9.2 fL (7.4-10.4) 06/25/22 12:05 Neut % (Auto) 77.1 % 06/25/22 12:05 Lymph % (Auto) 17.7 % 06/25/22 12:05 [place] % (Auto) 4.4 % 06/25/22 12:05 Eos % (Auto) 0.3 % 06/25/22 12:05 Baso % (Auto) 0.2 % 06/25/22 12:05 Neut # (Auto) 8.82 10^3/uL (1.8-7.7) H 06/25/22 12:05 Lymph # (Auto) 2.0 10^3/uL (0.8-4.8) 06/25/22 12:05 [place] # (Auto) 0.5 10^3/uL (0.2-0.9) 06/25/22 12:05 Eos # (Auto) 0.0 10^3/uL (0.0-0.8) 06/25/22 12:05 Baso # (Auto) 0.0 10^3/uL (0.0-0.1) 06/25/22 12:05 Nucleated RBC % (auto) 0 % 06/25/22 12:05 Nucleated RBCs # 0.0 /100WBC 06/25/22 12:05 Sodium 137 mmol/L (136-145) 06/25/22 12:05 Potassium 4.2 mmol/L (3.5-5.1) 06/25/22 12:05 Chloride 103 mmol/L (98-107) 06/25/22 12:05 Carbon Dioxide 23 mmol/L (22-29) 06/25/22 12:05 Anion Gap 15.2 (5-19) 06/25/22 12:05 BUN 6 mg/dL (6-20) 06/25/22 12:05 Creatinine 0.8 mg/dL (0.7-1.2) 06/25/22 12:05 GFR Calculation 100.7 mL/min (90-130) 06/25/22 12:05 Glucose 142 mg/dL (65-115) H 06/25/22 12:05 Calculated Osmolality 284 mOsm/kg (285-295) L 06/25/22 12:05 Calcium 9.0 mg/dL (8.5-10.5) 06/25/22 12:05 Total Bilirubin 0.3 mg/dL (0.15-1.2) 06/25/22 12:05 AST 18 U/L (0-40) 06/25/22 12:05 ALT 20 U/L (0-41) 06/25/22 12:05 Alkaline Phosphatase 81 U/L (40-130) 06/25/22 12:05 Troponin T Baseline 6 ng/L (0-15) 06/25/22 12:05 Troponin T 120 Minute 7.09 ng/L (0-15) 06/25/22 14:10 Delta Troponin T 1.09 ABS# (0-10) 06/25/22 14:10 NT-Pro-B Natriuret Pep 55 pg/mL (0-125) 06/25/22 12:05 Total Protein 7.4 g/dL (6.6-8.7) 06/25/22 12:05 Albumin 4.4 g/dL (3.5-5.2) 06/25/22 12:05 Globulin 3.0 g/dL (1.3-4.6) 06/25/22 12:05 EKG Data EKG 1: I personally reviewed and interpreted this EKG as follows: Interpretation: Contemporaneous review of this EKG reveals a ventricular rate of 93 bpm. Normal LA interval, QRS duration, corrected QT interval. Leftward axis noted. Has enlarged P wave noted in limb leads suggestive of right right atrial enlargement. Also has findings suggest the above of left anterior Heema block. No acute ST-T wave changes noted. Discharge Plan Discharge Patient Disposition: Home Clinical Impression: Palpitation Condition: Stable Prescriptions: No Action aspirin 325 mg tablet 325 mg PO DAILY PRN (Reason: Headache) hydrocodone-acetaminophen 10-325 mg tablet 1 tab PO Q4H PRN (Reason: pain) 30 Days Qty: 120 0RF Rx Instructions: for continued musculoskeletal pain albuterol sulfate [Ventolin HFA] 90 mcg/actuation HFA aerosol inhaler 2 puff inhalation Q6H PRN (Reason: shortness of breath or wheezing) Qty: 8.5 6RF pantoprazole [Protonix] 40 mg tablet,delayed release (DR/EC) 40 mg PO DAILY Qty: 90 3RF alprazolam 2 mg tablet 2 mg PO QID PRN (Reason: anxiety) Qty: 120 3RF gabapentin 600 mg tablet See Rx Instructions .ROUTE .COMPLEX Qty: 180 3RF Dose Instruction: TAKE ONE TABLET BY MOUTH TWICE DAILY as needed for nerve pain Rx Instructions: TAKE ONE TABLET BY MOUTH TWICE DAILY as needed for nerve pain ibuprofen 800 mg tablet See Rx Instructions .ROUTE .COMPLEX Qty: 90 3RF Dose Instruction: TAKE 1 TABLET BY MOUTH THREE TIMES DAILY NEEDED FOR PAIN Rx Instructions: TAKE 1 TABLET BY MOUTH THREE TIMES DAILY NEEDED FOR PAIN Discharge Orders: Discharge ED (Routine); Ordered 06/25/22 Ordered By: Jose Alfredo Hogan Referrals: Timmy Sorto, [Primary Care Provider] - Discharge Diet: Usual diet Discharge Activity: Increase activity as tolerated Patient Instructions: Opioid Safety, Pain Management Activity Restrictions/Additional Instructions: As we discussed we did not find any evidence of a heart attack or other worrisome condition that needed immediate intervention while you are in the emergency department today. We do recommend that you have an ambulatory heart monitor placed to ensure that there is no evidence of irregular heartbeats etc. We have since placed an order for that testing and you will be contacted by returned case inspector to set up that testing. We also advised that you follow-up with your primary care doctor within the next 2 weeks for further delineation of those results and any additional testing needed. If you develop any new, persistent, worsening symptoms return to this or the nearest emergency department immediately. We recommend discontinuing your tobacco use. Coding Level of Care Code ED Compositor Apprentice for Braden Duffy
[2022-06-25] MEDS: aspirin 81 mg Chew Tablet 324 MG PO (11:46)
[2022-06-25 12:17] LABS: Basophils % 0.2 %; Eosinophils % 0.3 %; Hematocrit 49.7 % (42.0-52.0); Hemoglobin 17.4 g/dL (11.7-16.6); Lymphocytes % 17.7 %; Mean Corpuscular Hemoglobin 32.5 pg (28.0-34.0); Mean Corpuscular Volume 92.9 fl (80-94); Mean Platelet Volume 9.2 fL (7.4-10.4); Monocytes # 0.5 10^3/uL (0.2-0.9); Monocytes % 4.4 %; Neutrophils # 8.82 10^3/uL (1.8-7.7); Neutrophils % 77.1 %; Nucleated Red Blood Cells % 0 %; Platelet Count 270 10^3/cmm (130-400); Red Blood Count 5.35 10^6/uL (4.1-5.3); Red Cell Distribution Width 13.2 % (12.1-15.1); White Blood Count 11.4 10^3/uL (4.0-10.0)
[2022-06-25 12:41] LABS: Troponin(5th) Baseline 6 ng/L (0-15)
[2022-06-25 12:51] LABS: Alanine Aminotransferase 20 U/L (0-41); Albumin Level 4.4 g/dL (3.5-5.2); Alkaline Phosphatase 81 U/L (40-130); Anion Gap 15.2 (5-19); Aspartate Amino Transferase 18 U/L (0-40); Blood Urea Nitrogen 6 mg/dL (6-20); Carbon Dioxide 23 mmol/L (22-29); Chloride 103 mmol/L (98-107); Glomerular Filtration Rate 100.7 mL/min (90-130); Glucose 142 mg/dL (65-115); NT Pro B Type Natriuretic Pept 55 pg/mL (0-125); Osmolality Calculated 284 mOsm/kg (285-295); Potassium 4.2 mmol/L (3.5-5.1); Sodium 137 mmol/L (136-145); Total Bilirubin 0.3 mg/dL (0.15-1.2); Total Protein 7.4 g/dL (6.6-8.7)
--- NOTE | 2022-06-25 13:02 | CT_ITS ---
WS: [id number] CT CHEST TECHNIQUE: Contrast enhanced CT of the chest with coronal and sagittal reformatted images. CLINICAL INFORMATION: see plain chest today COMPARISON: None. DLP: 388.[address] scans at [facility] use at least one of these dose optimization techniques: automated e xposure control; mA and/or kV adjustment per patient size (includes targeted exams where dose is matc hed to clinical indication); or iterative reconstruction. FINDINGS: RIGHT lower lobe is normal in appearance. No abnormalities in the RIGHT lower lobe corresponding to t he chest radiograph findings. Mild chronic emphysematous changes. No acute pulmonary infiltrates. No focal pneumonia or pleural fluid. Slight bibasilar atelectasis. Adrenal glands are normal. Prior chol ecystectomy.. Normal caliber thoracic aorta. CT/CT chest w con* [id number] IMPRESSION: 1. No abnormalities in the RIGHT lower lobe. 2. Lungs are well aerated. 3. No other acute chest findings.
[2022-06-25] MEDS: iohexol 350 mg/mL 500 mL Btl (per mL) IV (13:24)
[2022-06-25 14:47] LABS: Troponin 5 2HR 7.09 ng/L (0-15)
--- NOTE | 2022-06-25 14:58 | ECG_ITS ---
[facility] Test Date: 2022-06-25 Pat Name: Guille Russ Department: Room: Gender: Male Corporate General Manager: : 1965 Requested By: Jose Alfredo Hogan Order Number: [id number] Claros MD: Serge Almeida M.D. Measurements Intervals [place] Rate: 82 P: 68 MS: 179 QRS: -51 QRSD: 76 T: 61 QT: 327 QTc: 384 Interpretive Statements SINUS RHYTHM POSSIBLE LEFT ATRIAL ENLARGEMENT [-0.1mV P-WAVE IN V1/V2] PATTERN CONSISTENT WITH PULMONARY DISEASE LEFT ANTERIOR FASCICULAR BLOCK [QRS AXIS <= -45, QR IN I, RS IN II] Compared to ECG 06/25/2022 11:36:10 No significant changes Electronically Signed On 06-26-2022 0:00:40 CDT by Serge Almeida M.D. [id number]
[2022-06-25 14:59] LABS: Troponin 5 2HR Delta 1.09 ABS# (0-10)
[2022-06-25 15:01] VITALS: BP 120/83; PULSE 87; RESP 16; O2SAT 96
--- NOTE | 2022-06-27 10:36 | DCPLANNER ---
Addendum entered by Nuvia Astorga 07/10/22 08:02: Patient had a follow up appointment scheduled with heart care - patient did attend appointment Addendum entered by Nuvia Astorga 06/30/22 07:49: Patient has a follow up appointment scheduled for Thursday, July 07, 2022 at 2:00 at [facility]. Original Note: retail account manager had message to schedule an outpatient 7 day event monitor for patient. retail account manager faxed signed order to [facility], who will call patient with appointment information. retail account manager also sent patients information to the front office staff at [facility].
== END 2022-06-25 15:09 | disposition home or self-care (01) ==
PROVIDERS: Emergency Provider Emergency Medicine; PCP Family Medicine
DX: R00.2 Palpitations (principal); F17.210 Nicotine dependence, cigarettes, uncomplicated; Z86.19 Personal history of other infectious and parasitic diseases; R07.9 Chest pain, unspecified; M06.9 Rheumatoid arthritis, unspecified; B19.20 Unspecified viral hepatitis C without hepatic coma; R76.8 Other specified abnormal immunological findings in serum
CPT/HCPCS: 36415; 71045; 71260; 80053; 83880; 84484; 85025; 93005; 99214; 99285; Q9967

== ENCOUNTER → 2022-07-09 10:40 | Outpatient (BNVA) | payer MEDICAID, SELFPAY | PROVIDERS: PCP Family Medicine; Visit Provider Internal Medicine Cardiovascular Disease | DX: R00.2 Palpitations (principal) | CPT/HCPCS: 93270 ==

== ENCOUNTER → 2022-08-19 10:32 | Outpatient (BNVA) | payer MEDICAID, SELFPAY | PROVIDERS: PCP Family Medicine; Visit Provider Internal Medicine | DX: M06.9 Rheumatoid arthritis, unspecified (principal); L40.9 Psoriasis, unspecified; M50.21 Other cervical disc displacement, high cervical region; M51.26 Other intervertebral disc displacement, lumbar region; M51.27 Other intervertebral disc displacement, lumbosacral region | CPT/HCPCS: 36415; 72040; 72072; 80053; 84403; 84443; 85025; 85651; 86140; 86480; 99214 ==

== ENCOUNTER 2022-10-15 16:05 | Emergency (ER) | payer MEDICAID, SELFPAY ==
[2022-10-15 16:18] VITALS: PULSE 96; RESP 16; TEMP 36.8; O2SAT 97; BMI 25.0
--- NOTE | 2022-10-15 17:19 | ED_ITS ---
HPI - Back Pain/Injury General: Chief Complaint: Back Pain/Injury Stated Complaint: abd pain Time Seen by Provider: 10/15/22 17:18 Source: patient Mode of arrival: ambulatory Limitations: no limitations History of Present Illness: Patient is a nice 56 yo male here for complaints of back pain starting several hours ago after lifting. He states he was lifting/moving a tire when he felt something slip in his back. He reports chronic back pain. Normally takes hydrocodone daily prescribed by his PCP Dr. Sorto. Patient states pain radiates down into his right lower extremity. Denies numbness, tingling, loss of sensation. Denies pallor/coolness. He denies chest/abdominal pain. States pain feels similar to his chronic pain only worse in severity. He is able to ambulate here. MD elicited complaint: back pain Pertinent past history: prior back pain and back surgery Onset (ago): hour(s) Timing: constant Severity: severe Similar Symptoms Previously: Yes Location: lumbar spine Radiation: right leg below the knee Exacerbating factors: movement and walking Relieving factors: none Context: while lifting Associated symptoms: Reports difficulty walking (secondary to back pain); Deny abdominal pain, dysuria or hematuria Work related injury: No Review of Systems Card: Denies: chest pain Resp: Denies: dyspnea GI: Denies: abdominal pain : Denies: flank pain, dysuria, urinary incontinence or hematuria Musc: Reports: back pain; Denies: neck pain, extremity pain, extremity swelling, joint pain, joint swelling, joint redness, joint warmth or limited range of motion Skin/Breast: Denies: rash Neuro: Reports: difficulty walking (secondary to back pain); Denies: headache(s), numbness in extremities, weakness in extremities, sensory changes or dizziness PFS ED PFSH: Medical History Cervical disc disease Chronic hepatitis C Chronic migraine Depression Lumbar disc disease with radiculopathy Spondylolisthesis of cervical region Surgical History H/O hernia repair History of back surgery History of cholecystectomy History of colonoscopy (07/18/21) 2 yrs ago History of esophagogastroduodenoscopy (07/18/21) 2 yrs ago Family History Mother Diabetes Cancer Hypertension Stroke Father Heart disease Heart attack Hypertension Brother Diabetes Denies family history of Rheumatoid arthritis Lupus Hyperlipidemia Social History Smoking and tobacco status: current every day smoker cigarettes Alcohol intake: former Substance/Drug Use: never Household members: none Marital status: / Current occupational status: unemployed Physical Exam Const: COMMON NORMALS: no acute distress, average body habitus, patient oriented x3, no limitations, healthy appearing, alert and well nourished GENERAL APPEARANCE: cooperative Neck/C-Spine: COMMON NORMALS: full ROM, no lymphadenopathy, supple and no meningeal signs Chest: COMMONS NORMALS: normal inspection of the chest and normal palpation of entire chest wall Resp: COMMON NORMALS: normal respiratory effort and clear to auscultation bilaterally AUSCULTATION: clear to auscultation bilaterally Cardio: COMMON NORMALS: regular rate and regular rhythm RATE: regular rate RHYTHM: regular rhythm GI: COMMON NORMALS: Normal to inspection, nondistended, normoactive bowel sounds present, Soft to palpation, non-tender, No hepatosplenomegaly present and no masses PALPATION: Yes Soft to palpation and Yes No hepatosplenomegaly present : COMMON NORMALS: Yes no CVA tenderness BLADDER/KIDNEY EXAM: Yes no CVA tenderness Back/Pelvis: COMMON NORMALS: no CVA tenderness, thoracic and lumbar spine normal to inspection and straight leg raise negative bilaterally THORACIC SPINE/UPPER BACK: Yes normal to inspection, Yes thoracic ROM normal, No thoracic spinal tenderness, No paraspinal muscle tenderness and No paraspinal muscle spasm LUMBAR SPINE/LOWER BACK: Yes normal to inspection, Yes ROM limited, Yes pain with ROM, Yes lumbar spinal tenderness, Yes paraspinal muscle tenderness, No paraspinal muscle spasm and No mass present PELVIS: Yes buttocks normal and Yes sciatic notch tenderness on the right SACRUM: no tenderness COCCYX: no tenderness Extremity: COMMON NORMALS: normal to inspection, full ROM, capillary refill normal, no joint enlargement, no clubbing, cyanosis or edema, no calf tenderness and no pedal edema NARRATIVE EXTREMITY EXAM: bilateral LE DP/PT pulses/cap refill/sensation all normal Neuro: COMMON NORMALS: patient oriented x3, moves all extremities, no focal motor deficits, no sensory deficits noted and gait normal SENSOR IUM/ORIENTATION: Yes alert MENINGEAL SIGNS: Yes no meningeal signs Skin: COMMON NORMALS: no rashes or lesions noted GENERAL SKIN EXAM: no rashes or lesions noted Course Vital Signs: Vital signs: Vital Signs Temperature 98.2 F 10/15/22 16:18 Pulse Rate 96 10/15/22 16:18 Respiratory Rate 16 10/15/22 16:18 Pulse Oximetry 97 10/15/22 16:18 Oxygen Delivery Me thod Room Air 10/15/22 16:18 MDM - Back Pain/Injury Medical Decision Making Patient here with lower back pain with radiation down into the right lower leg after a pulling/lifting injury. Patient has no acute neurologic deficits. Has no complaints of chest or abdominal pains. States his pain is slightly improved with medications given here. We will place him on anti-inflammatories, steroids, muscle relaxers at home. He may continue his normal hydrocodone as prescribed. Recommend he follow-up with primary care if symptoms do not seem to be improving. Return to ED precautions given. Discharge Plan Discharge Patient Disposition: Home Clinical Impression: Lumbar disc disease with radiculopathy Condition: Stable Prescriptions: New methocarbamol 500 mg tablet 1,000 mg PO Q8H Qty: 30 0RF diclofenac sodium 50 mg tablet,delayed release (DR/EC) 50 mg PO Q12H PRN (Reason: pain) Qty: 20 0RF Medrol (Garrick) 4 mg tablets,dose pack See Rx Instructions .ROUTE .COMPLEX Qty: 21 0RF Rx Instructions: orally per package directions No Action aspirin 325 mg tablet 325 mg PO DAILY PRN (Reason: Headache) albuterol sulfate [Ventolin HFA] 90 mcg/actuation HFA aerosol inhaler 2 puff inhalation Q6H PRN (Reason: shortness of breath or wheezing) Qty: 8.5 6RF pantoprazole [Protonix] 40 mg tablet,delayed release (DR/EC) 40 mg PO DAILY Qty: 90 3RF prednisone 5 mg tablet See Rx Instructions PO DAILY Qty: 60 0RF Rx Instructions: 5-10mg orally daily; ibuprofen 800 mg tablet See Rx Instructions .ROUTE .COMPLEX Qty: 90 3RF Dose Instruction: TAKE 1 TABLET BY MOUTH THREE TIMES DAILY NEEDED FOR PAIN Rx Instructions: TAKE 1 TABLET BY MOUTH THREE TIMES DAILY NEEDED FOR PAIN alprazolam 2 mg tablet 2 mg PO QID PRN (Reason: anxiety) Qty: 120 5RF hydrocodone-acetaminophen 10-325 mg tablet 1 tab PO Q4H PRN (Reason: pain) 30 Days Qty: 120 0RF Rx Instructions: for continued musculoskeletal pain Discharge Orders: Discharge ED (Routine); Ordered 10/15/22 Ordered By: Ivania Christine Referrals: Timmy Sorto DO [Primary Care Provider] - Patient Instructions: Opioid Safety, Pain Management Activity Restrictions/Additional Instructions: As we discussed I would like you to follow-up with your primary care provider later this week/early next week if symptoms do not seem to be improving. You may return to the emergency department for severe worsening lower back pain, trouble urinating or defecating, loss of sensation to your lower extremities, trouble ambulating, severe abdominal or chest pain, or any other concerns you may have. I have written you prescriptions for a muscle relaxer, steroids, and anti-inflammatory. Do not take the diclofenac with other [id number] anti- inflammatories such as naproxen or ibuprofen. Coding Level of Care Code ED Screen Printing Machine Operator Helper for Braden Duffy
[2022-10-15] MEDS: morphine 4 mg/mL SDV 1 mL IM (17:27)
[2022-10-15] MEDS: methocarbamol 750 mg Tablet PO (17:27)
[2022-10-15] MEDS: ketorolac 60 mg/2 mL INJ IM (17:29)
[2022-10-15] MEDS: dexamethasone 10 mg/mL INJ 8 MG IM (17:32)
== END 2022-10-15 18:30 | disposition home or self-care (01) ==
PROVIDERS: Emergency Provider Physician Assistant; PCP Family Medicine
DX: M51.16 Intervertebral disc disorders with radiculopathy, lumbar region (principal); Z79.82 Long term (current) use of aspirin; Z86.19 Personal history of other infectious and parasitic diseases; F17.210 Nicotine dependence, cigarettes, uncomplicated
CPT/HCPCS: 96372; 99284; J1100; J1885; J2270

== ENCOUNTER 2022-10-24 14:59 | Outpatient (CLI) | payer MEDICAID, SELFPAY ==
--- NOTE | 2022-10-24 16:05 | XR_ITS ---
WS: [id number] EXAMINATION: XR lumbar spine 2-3V* [id number] L-SPINE : 3 views REASON FOR EXAM: M48.062 - Spinal stenosis, lumbar region with neurogenic ... COMPARISON: 12/11/2021 ORDER DATE: 10/24/2022 4:06 PM FINDINGS: The lumbar vertebral bodies and the disc spaces are normal in width. There are prominent osteophytes throughout the lumbar spine. In the lumbar vertebra, there is no evidence of compression deformities or spondylolisthesis. Minor atherosclerotic aortic change XR/XR lumbar spine 2-3V* [id number] IMPRESSION: UNREMARKABLE LUMBAR SPINE STUDY
== END 2022-10-24 15:00 | disposition home or self-care (01) ==
LOC: RAD 15:02
PROVIDERS: PCP Family Medicine; Visit Provider Internal Medicine
DX: M48.062 Spinal stenosis, lumbar region with neurogenic claudication (principal)
CPT/HCPCS: 72100

== ENCOUNTER → 2022-12-11 10:28 | Outpatient (BNVA) | payer MEDICARE, MEDICAID, SELFPAY | PROVIDERS: PCP Family Medicine; Visit Provider Internal Medicine | DX: R76.8 Other specified abnormal immunological findings in serum (principal); B19.20 Unspecified viral hepatitis C without hepatic coma; M06.9 Rheumatoid arthritis, unspecified; M48.062 Spinal stenosis, lumbar region with neurogenic claudication; Z72.0 Tobacco use | CPT/HCPCS: 80053; 85025; 85651; 86140; 99214 ==

== ENCOUNTER 2023-10-21 15:39 | Emergency (ER) | payer MEDICARE, MEDICAID, SELFPAY ==
[2023-10-21 15:43] VITALS: BP 133/90; PULSE 84; RESP 20; TEMP 36.9; O2SAT 97
[2023-10-21] MEDS: diphenhydrAMINE 50 mg/mL SDV 1mL IM (16:12)
[2023-10-21] MEDS: dexamethasone 10 mg/mL INJ IM (16:12)
--- NOTE | 2023-10-21 16:27 | W.ED.SKABFB ---
HPI - Skin/Abscess/Foreign Bdy General: Chief complaint: Skin/Abscess/Foreign Body Stated complaint: Red Wasp sting on butt and left arm Time Seen by Provider: 10/21/23 15:53 Source: patient Mode of arrival: ambulatory Limitations: no limitations History of Present Illness: Patient is a 57-year-old male presenting to the emergency department complaining of wasp thing to left elbow and buttocks onset earlier today. Patient states he was outside when this happened, and there has been expanding redness to both areas since. Both areas also have pain associated with it as well as itching. He did apply topical Benadryl, however this is the only treatment he has used. He denies any systemic signs of allergic reaction, initially did report to triage that he was feeling a little short of breath, however states now that he feels okay and does not want an x-ray. No other symptoms reported at this time. MD complaint: insect bite/sting Onset (ago): hour(s) Location: LUE and buttocks Severity: moderate Quality: pruritic Associated symptoms: Deny chills, fever(s), nausea or vomiting Treatments prior to arrival: Benadryl (Topical) Review of Systems General: Reports: 10 or more systems reviewed and unremarkable except in HPI and below Const: Denies: fever(s) or chills Card: Denies: chest pain Resp: Denies: dyspnea GI: Denies: abdominal pain, nausea, vomiting or diarrhea Musc: Denies: extremity pain or joint pain Skin/Breast: Reports: pruritus, erythema, skin pain and new lesions (Bug bite to left elbow and buttocks region); Denies: rash Neuro: Denies: headache(s) PFS ED PFSH: Medical History Tobacco abuse Spondylolisthesis of cervical region Cervical disc disease Lumbar disc disease with radiculopathy Depression Chronic migraine Chronic hepatitis C Surgical History History of back surgery History of colonoscopy (07/18/21) 2 yrs ago History of esophagogastroduodenoscopy (07/18/21) 2 yrs ago H/O hernia repair History of cholecystectomy Family History Mother Diabetes Cancer Hypertension Stroke Father Heart disease Heart attack Hypertension Brother Diabetes Denies family history of Rheumatoid arthritis Lupus Hyperlipidemia Social History Smoking and tobacco/nicotine status: current every day tobacco/nicotine user cigarettes Alcohol intake: former Substance/Drug Use: never Household members: none Marital status: / Current occupational status: unemployed Physical Exam Const: COMMON NORMALS: no acute distress, average body habitus, patient oriented x3, no limitations, healthy appearing, alert and well nourished HENMT: COMMON NORMALS: normocephalic and atraumatic HEAD & SCALP: normocephalic and atraumatic OTHER: No oropharyngeal swelling or redness Neck/C-Spine: COMMON NORMALS: full ROM, no lymphadenopathy, supple and no meningeal signs Chest: COMMONS NORMALS: normal inspection of the chest Resp: COMMON NORMALS: normal respiratory effort, No retractions, No use of accessory muscles and clear to auscultation bilaterally AUSCULTATION: clear to auscultation bilaterally Cardio: COMMON NORMALS: regular rate and regular rhythm RATE: regular rate RHYTHM: regular rhythm Extremity: COMMON NORMALS: full ROM and capillary refill normal Neuro: COMMON NORMALS: patient oriented x3 SENSORIUM/ORIENTATION: Yes alert MENINGEAL SIGNS: Yes no meningeal signs Skin: COMMON NORMALS: no wounds and turgor normal NARRATIVE SKIN EXAM: Area of expanding erythema to patient's posterior left elbow, this area is nontender however does seem to itch the patient. Examination of his buttocks region reveals the same, expanding erythema that patient has also been itching it. No fluctuance or significant induration. GENERAL SKIN EXAM: turgor normal Course Vital Signs: Vital signs: Vital Signs Temperature 98.4 F 10/21/23 15:43 Pulse Rate 84 10/21/23 15:43 Respiratory Rate 20 H 10/21/23 15:43 Blood Pressure 133/90 10/21/23 15:43 Pulse Oximetry 97 10/21/23 15:43 Oxygen Delivery Me thod Room Air 10/21/23 15:43 MDM - Skin/Abscess/Foreign Bdy Medicial Decision Making Patient presented for evaluation of 2 wasp stings, 1 to his left elbow onto his buttock region. Only had used topical Benadryl. Initially stated he was having some chest tightness with triage, however upon examination he states that this is no longer the case and he also denies x-ray when offered. He did not have any signs of angioedema, oropharyngeal swelling, or respiratory distress. His left elbow and buttock region both are erythematous and would benefit from a shot of Decadron as well as Benadryl. He has Benadryl at home that he will take and states that he just had an EpiPen sent to his pharmacy that he will use for any future anaphylactic incidences, though he denies any history of this from wasp stings. He will be discharged home at this time. No radiology studies performed this visit Discharge Plan Discharge Patient Disposition: Home Clinical Impression: Accidental wasp sting Condition: Stable Prescriptions: No Action aspirin 325 mg tablet 325 mg PO DAILY PRN (Reason: Headache) pantoprazole [Protonix] 40 mg tablet,delayed release (DR/EC) 40 mg PO DAILY Qty: 90 3RF prednisone 5 mg tablet See Rx Instructions PO DAILY Qty: 60 0RF Rx Instructions: 5-10mg orally daily; nicotine 14 mg/24 hr patch 24 hour 1 patch transdermal DAILY Qty: 28 0RF hydrocodone-acetaminophen 10-325 mg tablet 1 tab PO Q4H MDD 6 tabs per day PRN (Reason: pain) 30 Days Qty: 180 0RF Rx Instructions: for continued musculoskeletal pain Humira Pen 40 mg/0.8 mL pen injector kit See Rx Instructions SUBCUT .COMPLEX Qty: 4 3RF Rx Instructions: inject one - 40 mg/0.8 mL pen every 2 weeks SUBCUT albuterol sulfate [Ventolin HFA] 90 mcg/actuation HFA aerosol inhaler See Rx Instructions .ROUTE .COMPLEX Qty: 8.5 6RF Dose Instruction: inhale TWO puffs BY MOUTH EVERY 6 HOURS as needed for SHORTNESS OF BREATH or wheezing Rx Instructions: inhale TWO puffs BY MOUTH EVERY 6 HOURS as needed for SHORTNESS OF BREATH or wheezing ibuprofen 800 mg tablet See Rx Instructions .ROUTE .COMPLEX Qty: 90 3RF Dose Instruction: TAKE 1 TABLET BY MOUTH THREE TIMES DAILY NEEDED FOR PAIN Rx Instructions: TAKE 1 TABLET BY MOUTH THREE TIMES DAILY NEEDED FOR PAIN hydrocodone-acetaminophen 7.5-325 mg tablet 1 tab PO Q4H MDD 6 tabs per day PRN (Reason: pain) 30 Days Qty: 180 0RF alprazolam 2 mg tablet 2 mg PO QID PRN (Reason: anxiety) Qty: 120 5RF valacyclovir 1 gram tablet 1,000 mg PO BID Qty: 14 0RF methocarbamol 500 mg tablet 1,000 mg PO Q8H Qty: 30 0RF diclofenac sodium 50 mg tablet,delayed release (DR/EC) 50 mg PO Q12H PRN (Reason: pain) Qty: 20 0RF Medrol (Garrick) 4 mg tablets,dose pack See Rx Instructions .ROUTE .COMPLEX Qty: 21 0RF Rx Instructions: orally per package directions Discharge Orders: Discharge ED (Routine); Ordered 10/21/23 Ordered By: Cm Raymond Referrals: Timmy Sorto, DO [Primary Care Provider] - Patient Instructions: Insect Bite or Sting (ED) Activity Restrictions/Additional Instructions: Take your Benadryl at home. Apply ice. Tylenol and ibuprofen for pain. Return with any new or concerning symptoms, such that if you have any tongue or throat swelling or difficulty breathing. Otherwise follow-up with your primary care provider. Coding Level of Care Code ED Social Insurance Specialist for Braden Duffy
[2023-10-21 16:35] VITALS: PULSE 86; RESP 15; O2SAT 98
== END 2023-10-21 16:35 | disposition home or self-care (01) ==
PROVIDERS: Emergency Provider Physician Assistant; PCP Family Medicine
DX: T63.461A Toxic effect of venom of wasps, accidental (unintentional), initial encounter (principal); Z79.82 Long term (current) use of aspirin; F17.210 Nicotine dependence, cigarettes, uncomplicated; Z86.19 Personal history of other infectious and parasitic diseases
CPT/HCPCS: 96372; 99284; J1100; J1200

== ENCOUNTER → 2023-12-08 12:26 | Outpatient (BNVA) | payer MEDICARE, MEDICAID, SELFPAY | PROVIDERS: PCP Family Medicine; Visit Provider Family Medicine | DX: Z13.6 Encounter for screening for cardiovascular disorders (principal); F32.A Depression, unspecified; F41.9 Anxiety disorder, unspecified; D75.1 Secondary polycythemia; M51.16 Intervertebral disc disorders with radiculopathy, lumbar region; E03.9 Hypothyroidism, unspecified; R53.1 Weakness | CPT/HCPCS: 80053; 80061; 82607; 84443; 85025 ==

== ENCOUNTER 2024-03-10 13:39 | Outpatient (CLI) | payer MEDICARE, SELFPAY ==
--- NOTE | 2024-03-10 13:30 | MM_ITS ---
WS: [id number] BILATERAL 3D TOMOSYNTHESIS DIGITAL DIAGNOSTIC MAMMOGRAPHY WITH CAD CLINICAL INFORMATION: N63.0 - Unspecified lump in unspecified breast HISTORY: LEFT breast lump COMPARISON: None. TECHNIQUE: Bilateral CC, MLO, and ML views. FINDINGS: Scattered fibroglandular densities bilaterally. Palpable marker upper outer LEFT breast. No underlyin g parenchymal abnormality is visualized. Ultrasound is pending. Mild bilateral subareolar gynecomasti a. ULTRASOUND BREAST LEFT TECHNIQUE: Ultrasound left breast focused area of concern. CLINICAL INFORMATION: N63.0 - Unspecified lump in unspecified breast FINDINGS: Ultrasound LEFT breast 12 o'clock position 3 cm from the nipple in the area of palpable concern. Deep to the palpable marker is a well-circumscribed ovoid slightly echogenic lesion measuring 2.2 x 2.8 x 1.0 cm most compatible with lipoma. This has a benign appearance. No other suspicious findings. MM/MM diag BI tomosynthesis [id number] IMPRESSION: DENSITY: There are scattered areas of fibroglandular density. BI-RADS: 2 - Benign. FOLLOW UP: See Report
--- NOTE | 2024-03-10 14:00 | US_ITS ---
WS: [id number] BILATERAL 3D TOMOSYNTHESIS DIGITAL DIAGNOSTIC MAMMOGRAPHY WITH CAD CLINICAL INFORMATION: N63.0 - Unspecified lump in unspecified breast HISTORY: LEFT breast lump COMPARISON: None. TECHNIQUE: Bilateral CC, MLO, and ML views. FINDINGS: Scattered fibroglandular densities bilaterally. Palpable marker upper outer LEFT breast. No underlyin g parenchymal abnormality is visualized. Ultrasound is pending. Mild bilateral subareolar gynecomasti a. ULTRASOUND BREAST LEFT TECHNIQUE: Ultrasound left breast focused area of concern. CLINICAL INFORMATION: N63.0 - Unspecified lump in unspecified breast FINDINGS: Ultrasound LEFT breast 12 o'clock position 3 cm from the nipple in the area of palpable concern. Deep to the palpable marker is a well-circumscribed ovoid slightly echogenic lesion measuring 2.2 x 2.8 x 1.0 cm most compatible with lipoma. This has a benign appearance. No other suspicious findings. US/US breast LT limited* [id number] IMPRESSION: DENSITY: There are scattered areas of fibroglandular density. BI-RADS: 2 - Benign. FOLLOW UP: See Report
== END 2024-03-10 13:40 | disposition home or self-care (01) ==
LOC: RAD 13:40
PROVIDERS: PCP Family Medicine; Visit Provider Clinical Nurse Specialist Adult Health
DX: N63.22 Unspecified lump in the left breast, upper inner quadrant (principal); R92.323 Mammographic fibroglandular density, bilateral breasts
CPT/HCPCS: 76642; 77062; G0279

== ENCOUNTER 2024-08-06 18:51 | Emergency (ER) | payer MEDICARE, SELFPAY ==
[2024-08-06 19:19] VITALS: BP 151/100; PULSE 79; RESP 18; TEMP 36.8; O2SAT 95; BMI 24.3
[2024-08-06 19:42] LABS: Basophils % 0.3 %; Eosinophils # 0.1 10^3/uL (0.0-0.8); Eosinophils % 0.9 %; Hematocrit 48.8 % (37-53); Lymphocytes # 2.6 10^3/uL (0.8-4.8); Lymphocytes % 40.1 %; Mean Corpuscular HGB Conc 34.6 g/dL (30-55); Mean Corpuscular Hemoglobin 32.9 pg (27-33); Mean Corpuscular Volume 94.9 fl (82-101); Monocytes # 0.4 10^3/uL (0.2-0.9); Monocytes % 6.6 %; Neutrophils # 3.33 10^3/uL (1.8-7.7); Neutrophils % 51.9 %; Nucleated Red Blood Cells % 0 %; Platelet Count 254 10^3/cmm (157-399); Red Blood Count 5.14 10^6/uL (3.85-5.65); Red Cell Distribution Width 12.5 % (12.1-15.1); White Blood Count 6.41 10^3/uL (3.29-11.43)
[2024-08-06 20:00] LABS: Alanine Aminotransferase 12 U/L (0-41); Albumin Level 4.3 g/dL (3.5-5.2); Alkaline Phosphatase 79 U/L (40-130); Anion Gap 17.1 (5-19); Aspartate Amino Transferase 13 U/L (0-40); Blood Urea Nitrogen 7 mg/dL (6-20); Calcium 9.2 mg/dL (8.5-10.5); Carbon Dioxide 25 mmol/L (22-29); Chloride 100 mmol/L (98-107); Creatinine Clr Calc Pharmacy 102.5495; Globulin 3.1 g/dL (1.3-4.6); Glomerular Filtration Rate 87.3 mL/min (90-130); Glucose 108 mg/dL (65-115); Lipase 36 U/L (13-60); Osmolality Calculated 285 mOsm/kg (285-295); Potassium 4.1 mmol/L (3.5-5.1); Sodium 138 mmol/L (136-145); Total Bilirubin 0.4 mg/dL (0.15-1.2); Total Protein 7.4 g/dL (6.6-8.7)
--- NOTE | 2024-08-06 20:23 | XRR_ITS ---
PROCEDURE INFORMATION: Exam: XR Abdomen Exam date and time: 08/06/2024 8:40 PM Age: 58 years old Clinical indication: Abdominal pain; Diffuse abd pain with constipation TECHNIQUE: Imaging protocol: Radiologic exam of the abdomen. Views: Frontal supine view of the abdomen. 1 View. COMPARISON: CT chest abdpel w/*[id number] 06/27/2021 1:06 PM FINDINGS: Gastrointestinal tract: There is nonspecific nonobstructive bowel gas pattern. Intraperitoneal space: There are surgical clips in the right upper quadrant from cholecystectomy. Bones/joints: Unremarkable. XR/XR KUB portable [id number] IMPRESSION: No acute finding.
--- NOTE | 2024-08-06 21:12 | ED_ITS ---
HPI - Abdominal Pain 2 General: Chief Complaint: Abdominal Pain Stated Complaint: Stomach Pain Light headed Time Seen by Provider: 08/06/24 20:23 History of Present Illness: 58-year-old male patient has been battli ng belly pain on and off for the last 1 to 1.5 years. He complains of belly pain today, distention. He has had very little to no bowel movement since 5 days ago. He is not vomiting. He is nauseated. No fever. He complains of chronic back pain, for which he takes up to 3 hydrocodone today. He is on medication for opioid-induced constipation, which does not seem to be working as well. He has had an EGD recently, and is undergoing further treatment by GI. He complains of right sided radicular back pain with paresthesias to his right thigh. This is a chronic condition also. Related Data Home Medications ?Medication ?Instructions ?Recorded ?Confirmed aspirin 325 mg tablet 325 mg PO DAILY PRN Headache 04/08/21 12/11/22 Previous Rx's ?Medication ?Instructions ?Recorded diclofenac sodium 50 mg 50 mg PO Q12H PRN pain #20 t abs 10/15/22 tablet,delayed release methocarbamol 500 mg tablet 1,000 mg (2 x 500 mg) PO Q 8H #30 10/15/22 tabs adalimumab 40 mg/0.8 mL See Rx Instructions SUBCUT 0 10/22/22 subcutaneous pen kit (Humira Pen) .COMPLEX #4 ea nicotine 14 mg/24 hr daily 1 patch transdermal DAILY # 28 ea 12/11/22 transdermal patch albuterol sulfate 90 mcg/actuation See Rx Instructions .Route 02/23/23 aerosol inhaler (Ventolin HFA) .COMPLEX #8.5 grams ibuprofen 800 mg tablet See Rx Instructions .Route 1 04/27/22 .COMPLEX #90 tabs hydrocodone 7.5 mg-acetaminophen 1 tab PO Q4H PRN pain 1 month #180 04/01/23 325 mg tablet tabs valacyclovir 1 gram tablet 1,000 mg PO BID fever blist ers #14 06/22/23 tabs epinephrine 0.3 mg/0.3 mL 0.3 mg (0.3 mL) IM Q4H PRN 0 10/26/23 injection, auto-injector anaphylaxis #2 ea pantoprazole 40 mg tablet,delayed 40 mg PO DAILY for s tomach #90 tabs 04/14/24 release (Protonix) alprazolam 2 mg tablet 2 mg PO QID PRN anxiety #120 tabs 05/12/24 hydrocodone 10 mg-acetaminophen 1 tab PO Q4H PRN pain 30 days #180 07/12/24 325 mg tablet tabs morphine 15 mg tablet,extended 15 mg PO Q12H chronic p ain 30 days 07/12/24 release (MS Contin) #60 tabs lubiprostone 24 mcg capsule 24 mcg PO BID opioid induc ed 07/28/24 constipation #60 caps lactulose 10 gram/15 mL oral 20 g (30 mL) PO TID #1,50 0 mL 08/06/24 solution methylprednisolone 4 mg tablets in See Rx Instructions PO .COMPLEX 08/06/24 a dose pack (Medrol (Garrick)) #21 ea Allergies Allergy/AdvReac Type Severity Reaction Status Date / Time cyclobenzaprine Allergy Intermediate nausea/vomi Verified 07/28/24 13:46 ting oxycodone (From Percocet) Allergy ADR-Nausea Verified 07/28/24 13:46 tramadol Allergy ADR-Headach Verified 07/28/24 13:46 e venlafaxine (From Effexor) Allergy ADR-Confusi Verified 07/28/24 13:46 on [facility] ED 2 PFSH: Medical History Tobacco abuse Spondylolisthesis of cervical region Cervical disc disease Lumbar disc disease with radiculopathy Depression Chronic migraine Chronic hepatitis C Surgical History History of back surgery History of colonoscopy (07/18/21) 2 yrs ago History of esophagogastroduodenoscopy (07/18/21) 2 yrs ago H/O hernia repair History of cholecystectomy Family History Mother Diabetes Cancer Hypertension Stroke Father Heart disease Heart attack Hypertension Brother Diabetes Denies family history of Rheumatoid arthritis Lupus Hyperlipidemia Social History Smoking and tobacco/nicotine status: current every day tobacco/nicotine user cigarettes Alcohol intake: former Substance/Drug Use: never Household members: none Marital status: / Current occupational status: unemployed Physical Exam 2 Const: COMMON NORMALS: alert GENERAL APPEARANCE: well developed O RIENTATION/CONSCIOUSNESS: Yes awake, Yes oriented to person, Yes oriented to place and Yes oriented to time HENMT: COMMON NORMALS: external ears normal and Normal external nose present FACE & SINUS: normal facial exam NOSE: Normal external nose present E XTERNAL EAR: Yes external ears normal Eye: COMMON NORMALS: Equal, round and reactive pupils present, EOMs intact bilaterally and conjunctivae normal EYELID: eyelids normal CONJUNCTIVA: Y es conjunctivae normal PUPIL: Yes Equal, round and reactive pupils present Neck/C-Spine: GENERAL: No tracheal deviation CERVICAL SPINE: Yes normal cervical lordosis Chest: COMMONS NORMALS: normal inspection of the chest CHEST: Yes Symmetrical chest wall rise and No tenderness Resp: COMMON NORMALS: clear to auscultation bilaterally EFFORT & INSPECTION: No tachypneic, No respiratory distress, No retractions, No uses accessory muscles and No tracheal deviation AUSCULTATION: clear to auscultation bilaterally, no rhonchi, no wheezes and lung sounds not diminished Cardio: COMMON NORMALS: regular rate and regular rhythm RATE: regular rate RHYTHM: regular rhythm HEART SOUNDS: no murmurs PERIPHERAL PULSES: r adial pulses present GI: INSPECTION: Yes abdominal distension AUSCULTATION: No Hyperactive bowel sounds present and Yes Hypoactive bowel sounds present PALPATION: Yes Tenderness to palpation present (GI) (Generalized) and No Guarding due to palpation present (GI) : COMMON NORMALS: Yes no CVA tenderness BLADDER/KIDNEY EXAM: Yes no CVA tenderness Back/Pelvis: COMMON NORMALS: no CVA tenderness PELVIS: Yes no pain with anterior-posterior compression and Yes no pain with lateral compression Neuro: SENSORIUM/ORIENTATION: Yes alert, Yes oriented to person, Yes oriented to place and Yes oriented to time Psych: COMMON NORMALS: mental status grossly normal and speech normal S PEECH: Yes normal speech Skin: COMMON NORMALS: no rashes or lesions noted GENERAL SKIN EXAM: no rashes or lesions noted Course 2 Vital Signs: Vital signs: Vital Signs Temperature 98.2 F 08/06/24 19:19 Pulse Rate 79 08/06/24 19:19 Respiratory Rate 18 08/06/24 19:19 Blood Pressure 151/100 08/06/24 19:19 Pulse Oximetry 95 08/06/24 19:19 Oxygen Delivery Me thod Room Air 08/06/24 19:19 MDM - Abdominal Pain Medical Decision Making Vitals are stable. He is slightly hypertensive. CBC is normal. BMP is normal. KUB is nonacute. Urinalysis is negative. Lipase is 36. CT shows possible nonspecific enteritis of the ascending colon. No other acute findings. Results were explained to him. He is constipated. He will be placed on lactulose 3 times daily until stools are regular and soft and then decrease dose as needed. Follow-up with his doctor. He has a follow-up with surgery regarding potential continuance of GI workup in 10 days. Lab Data 08/06/24 19:37 08/06/24 19:37 Labs/Radiology: Radiology Impressions KUB X-Ray 08/06/24 20:23 IMPRESSION: No acute finding. Abdomen/Pelvis CT 08/06/24 21:25 IMPRESSION: 1. Possible nonspecific enteritis of the ascending colon. 2. Mild distension of common bile duct which may be due to the patient's post cholecystectomy status. Laboratory Results WBC 6.41 10^3/uL (3.29-11.43) 08/06/24 19:37 RBC 5.14 10^6/uL (3.85-5.65) 08/06/24 19:37 Hgb 16.90 g/dL (11.27-16.99) 08/06/24 19:37 Hct 48.8 % (37-53) 08/06/24 19:37 MCV 94.9 fl (82-101) 08/06/24 19:37 MCH 32.9 pg (27-33) 08/06/24 19:37 MCHC 34.6 g/dL (30-55) 08/06/24 19:37 RDW 12.5 % (12.1-15.1) 08/06/24 19:37 Plt Count 254 10^3/cmm (157-399) 08/06/24 19:37 MPV 9.0 fL (7.4-10.4) 08/06/24 19:37 Neut % (Auto) 51.9 % 08/06/24 19:37 Lymph % (Auto) 40.1 % 08/06/24 19:37 Mcculloch % (Auto) 6.6 % 08/06/24 19:37 Eos % (Auto) 0.9 % 08/06/24 19:37 Baso % (Auto) 0.3 % 08/06/24 19:37 Neut # (Auto) 3.33 10^3/uL (1.8-7.7) 08/06/24 19:37 Lymph # (Auto) 2.6 10^3/uL (0.8-4.8) 08/06/24 19:37 Mcculloch # (Auto) 0.4 10^3/uL (0.2-0.9) 08/06/24 19:37 Eos # (Auto) 0.1 10^3/uL (0.0-0.8) 08/06/24 19:37 Baso # (Auto) 0.0 10^3/uL (0.0-0.1) 08/06/24 19:37 Nucleated RBC % (auto) 0 % 08/06/24 19:37 Nucleated RBCs # 0.0 /100WBC 08/06/24 19:37 Sodium 138 mmol/L (136-145) 08/06/24 19:37 Potassium 4.1 mmol/L (3.5-5.1) 08/06/24 19:37 Chloride 100 mmol/L (98-107) 08/06/24 19:37 Carbon Dioxide 25 mmol/L (22-29) 08/06/24 19:37 Anion Gap 17.1 (5-19) 08/06/24 19:37 BUN 7 mg/dL (6-20) 08/06/24 19:37 Creatinine 0.9 mg/dL (0.7-1.2) 08/06/24 19:37 GFR Calculation 87.3 mL/min (90-130) L 08/06/24 19:37 Glucose 108 mg/dL (65-115) 08/06/24 19:37 Calculated Osmolality 285 mOsm/kg (285-295) 08/06/24 19:37 Calcium 9.2 mg/dL (8.5-10.5) 08/06/24 19:37 Total Bilirubin 0.4 mg/dL (0.15-1.2) 08/06/24 19:37 AST 13 U/L (0-40) 08/06/24 19:37 ALT 12 U/L (0-41) 08/06/24 19:37 Alkaline Phosphatase 79 U/L (40-130) 08/06/24 19:37 Total Protein 7.4 g/dL (6.6-8.7) 08/06/24 19:37 Albumin 4.3 g/dL (3.5-5.2) 08/06/24 19:37 Globulin 3.1 g/dL (1.3-4.6) 08/06/24 19:37 Lipase 36 U/L (13-60) 08/06/24 19:37 Urine Color Yellow (Yellow) 08/06/24 21:10 Urine Appearance Clear (CLEAR) 08/06/24 21:10 Urine pH 5.5 (5-7) 08/06/24 21:10 Ur Specific [place] 1.013 (1.005-1.030) 08/06/24 21:10 Urine Protein Negative (Negative) 08/06/24 21:10 Urine Glucose (UA) Negative (Normal) 08/06/24 21:10 Urine Ketones Negative (Negative) 08/06/24 21:10 Urine Blood Negative (Negative) 08/06/24 21:10 Urine Nitrate Negative (Negative) 08/06/24 21:10 Urine Bilirubin Negative (Negative) 08/06/24 21:10 Urine Urobilinogen 1.0 mg/dL (Negative) 08/06/24 21:10 Ur Leukocyte Esterase Negative (Negative) 08/06/24 21:10 Urine RBC 0-2 /hpf (0-2) 08/06/24 21:10 Urine WBC 0-5 /hpf (0-5) 08/06/24 21:10 Ur Squamous Epith Cells 0-5 /hpf (0-5) 08/06/24 21:10 Amorphous Sediment Not Reportable 08/06/24 21:10 Urine Bacteria None seen /hpf (NONE) 08/06/24 21:10 Hyaline Casts 0-4 /lpf H 08/06/24 21:10 All radiology interpretation(s) finalized by discharge Discharge Plan Discharge Patient Disposition: Home Clinical Impression: Constipation, Enteritis, Lumbar radiculopathy Condition: Stable Prescriptions: New methylprednisolone [Medrol (Garrick)] 4 mg tablets,dose pack See Rx Instructions .ROUTE .COMPLEX Qty: 21 0RF Rx Instructions: orally per package directions lactulose 10 gram/15 mL solution 20 g PO TID Qty: 1500 0RF No Action aspirin 325 mg tablet 325 mg PO DAILY PRN (Reason: Headache) lubiprostone 24 mcg capsule 24 mcg PO BID Qty: 60 5RF nicotine 14 mg/24 hr patch 24 hour 1 patch transdermal DAILY Qty: 28 0RF Humira Pen 40 mg/0.8 mL pen injector kit See Rx Instructions SUBCUT .COMPLEX Qty: 4 3RF Rx Instructions: inject one - 40 mg/0.8 mL pen every 2 weeks SUBCUT albuterol sulfate [Ventolin HFA] 90 mcg/actuation HFA aerosol inhaler See Rx Instructions .ROUTE .COMPLEX Qty: 8.5 6RF Dose Instruction: inhale TWO puffs BY MOUTH EVERY 6 HOURS as needed for SHORTNESS OF BREATH or wheezing Rx Instructions: inhale TWO puffs BY MOUTH EVERY 6 HOURS as needed for SHORTNESS OF BREATH or wheezing ibuprofen 800 mg tablet See Rx Instructions .ROUTE .COMPLEX Qty: 90 3RF Dose Instruction: TAKE 1 TABLET BY MOUTH THREE TIMES DAILY NEEDED FOR PAIN Rx Instructions: TAKE 1 TABLET BY MOUTH THREE TIMES DAILY NEEDED FOR PAIN hydrocodone-acetaminophen 7.5-325 mg tablet 1 tab PO Q4H MDD 6 tabs per day PRN (Reason: pain) 30 Days Qty: 180 0RF valacyclovir 1 gram tablet 1,000 mg PO BID Qty: 14 0RF epinephrine 0.3 mg/0.3 mL auto-injector 0.3 mg IM Q4H PRN (Reason: anaphylaxis) Qty: 2 0RF pantoprazole [Protonix] 40 mg tablet,delayed release (DR/EC) 40 mg PO DAILY Qty: 90 3RF alprazolam 2 mg tablet 2 mg PO QID PRN (Reason: anxiety) Qty: 120 5RF hydrocodone-acetaminophen 10-325 mg tablet 1 tab PO Q4H MDD 6 tabs per day PRN (Reason: pain) 30 Days Qty: 180 0RF Rx Instructions: for continued musculoskeletal pain morphine [MS Contin] 15 mg tablet extended release 15 mg PO Q12H 30 Days Qty: 60 0RF methocarbamol 500 mg tablet 1,000 mg PO Q8H Qty: 30 0RF diclofenac sodium 50 mg tablet,delayed release (DR/EC) 50 mg PO Q12H PRN (Reason: pain) Qty: 20 0RF Discharge Orders: Discharge ED (Routine); Ordered 08/06/24 Ordered By: Mal Ochoa Referrals: Timmy Sorto, [Primary Care Provider, Family Practice] - 1-3 days Patient Instructions: Constipation (ED), Lumbar Radiculopathy (ED), Opioid Safety, Pain Management Activity Restrictions/Additional Instructions: Medication as directed. Lactulose 3 times daily until stools become regular and soft, then you can decrease to 2 doses daily, then 1, etc. Follow-up with your doctor. Return for any problems. Print Language: Italian Coding Level of Care Code ED [employer] for Braden Duffy
--- NOTE | 2024-08-06 21:25 | CTR_ITS ---
PROCEDURE INFORMATION: Exam: CT Abdomen And Pelvis With Contrast Exam date and time: 08/06/2024 9:40 PM Age: 58 years old Clinical indication: Abdominal pain; Generalized; Prior surgery; Surgery date: 6+ months; Surgery type: Gb. Hernia repair; C/O abd pain with constipation TECHNIQUE: Imaging protocol: Computed tomography of the abdomen and pelvis with contrast. Radiation optimization: All CT scans at this facility use at least one of these dose optimization techniques: automated exposure control; mA and/or kV adjustment per patient size (includes targeted exams where dose is matched to clinical indication); or iterative reconstruction. Contrast material: OMNI 350; Contrast volume: 100 ml; Contrast route: INTRAVENOUS (IV); COMPARISON: CT chest abdpel w/*[id number] 06/27/2021 1:06 PM RADIATION DOSE METRICS: Total DLP (mGy-cm): 560.97 FINDINGS: Lungs: There is mild dependent atelectasis at the lung bases. Liver: There is no focal abnormality within the liver. Gallbladder and biliary ducts: There has been a cholecystectomy. Common bile duct measures 11 mm which is not unusual post cholecystectomy but more prominent than on 06/27/2021. Pancreas: The pancreas is normal. Spleen: The spleen is normal. Adrenal glands: The adrenal glands are normal. Kidneys and ureters: There is a 6 mm benign-appearing simple cyst lower pole right kidney not significantly changed. The left kidney is normal. There is no evidence of hydronephrosis. There is no evidence of renal or ureteral calcifications. Stomach and bowel: Moderate diverticulosis is present in the distal colon. There is no evidence of diverticulitis. There is no evidence of intestinal obstruction. There is some mild wall thickening of the ascending colon which could represent some mild nonspecific enteritis. Appendix: A normal appendix is identified. Intraperitoneal space: There is no evidence of free intraperitoneal fluid. Vasculature: The aorta demonstrates mild atherosclerotic calcification. There is no evidence of an abdominal aortic aneurysm. Lymph nodes: There is no evidence of lymphadenopathy. Urinary bladder: Unremarkable as visualized. Reproductive: The prostate demonstrates moderate nonspecific enlargement. The seminal vesicles are normal. Bones/joints: Unremarkable. No acute fracture. Soft tissues: Unremarkable. CT/CT abdomen pelvis w con* [id number] IMPRESSION: 1. Possible nonspecific enteritis of the ascending colon. 2. Mild distension of common bile duct which may be due to the patient's post cholecystectomy status.
[2024-08-06 21:27] LABS: Bilirubin Urine Negative (Negative); Blood Urine Negative (Negative); Glucose Urine UA Negative (Normal); Ketones Urine Negative (Negative); Leukocyte Esterase Urine Negative (Negative); Nitrate Urine Negative (Negative); Protein Urine Negative (Negative); Specific Gravity, Urine 1.013 (1.005-1.030); Urine Appearance Clear (CLEAR); Urine Color Yellow (Yellow); pH Urine 5.5 (5-7)
[2024-08-06 21:29] LABS: Add Urine Microscopic? YES; Bacteria Urine None Seen /hpf; Hyaline Casts Urine 0-4 /lpf; RBC Urine 0-2 /hpf (0-2); Squamous Epithelial Cell Urine 0-5 /hpf (0-5); WBC Urine 0-5 /hpf (0-5)
[2024-08-06] MEDS: iohexol 350 mg/mL 500 mL Btl (per mL) IV (21:45)
== END 2024-08-06 23:03 | disposition home or self-care (01) ==
PROVIDERS: Emergency Medicine; Emergency Provider Emergency Medicine; PCP Family Medicine
DX: K59.00 Constipation, unspecified (principal); K52.9 Noninfective gastroenteritis and colitis, unspecified; M54.16 Radiculopathy, lumbar region; Z79.82 Long term (current) use of aspirin; F17.210 Nicotine dependence, cigarettes, uncomplicated
CPT/HCPCS: 36415; 74018; 74177; 80053; 81001; 83690; 85025; 99285

== ENCOUNTER → 2024-11-17 15:05 | Outpatient (BNVA) | payer MEDICARE, SELFPAY | PROVIDERS: PCP Family Medicine; Visit Provider Orthopaedic Surgery | DX: M54.9 Dorsalgia, unspecified (principal); M48.062 Spinal stenosis, lumbar region with neurogenic claudication | CPT/HCPCS: 72110; 99213 ==

== ENCOUNTER 2024-12-12 12:38 | Outpatient (CLI) | payer MEDICARE, SELFPAY ==
--- NOTE | 2024-12-12 13:00 | MR_ITS ---
WS: [id number] MRI LUMBAR SPINE NONCONTRAST TECHNIQUE: Sagittal T1, T2 and STIR imaging. Axial T1 and T2 imaging. CLINICAL INFORMATION: M48.062 - Spinal stenosis, lumbar region with neurogenic ... COMPARISON: 2021 FINDINGS: Counting performed from the craniocervical junction demonstrate 6 lumbar-type vertebral bodies which will be labeled L1-L6 for the purposes of today's study. This is different from the convention used in 202. L1-L2: Normal. L2-L3: Normal. L3-L4: Mild annular bulging similar to previous. Slight effacement of the ventral thecal sac. Mild facet arthropathy. Spinal canal and foramen are patent. L4-L5: Mild annular bulging. Narrowing of the RIGHT subarticular recess. Bilateral foraminal protrusions RIGHT greater than LEFT with slight impingement on the exiting RIGHT greater than LEFT L4 nerve roots. This is also similar to previous. L5-L6: Mild annular bulging with a shallow central protrusion and moderate central canal stenosis. Impingement of the traversing L6 nerve roots bilaterally. Moderate facet arthropathy. Central canal stenosis is similar to previous. Small bilateral foraminal protrusions with mild bilateral foraminal narrowing. L6-S1: Mild annular bulging. Small central protrusion. Slight impingement of traversing S1 nerve roots. Moderate facet arthropathy. Central protrusion at this level appears slightly progressed. Mild bilateral foraminal narrowing. Visualized pelvic bony structures: Normal. Paravertebral soft tissues: Normal. MR/MR lumbar spine wo con* [id number] IMPRESSION: 1. Counting performed from the craniocervical junction demonstrate 6 lumbar-t ype vertebral bodies which will be labeled L1-L6 for the purposes of today's st udy. This is different from the convention used in 202. 2. Moderate central canal stenosis L5-S1 with central disc protrusion and impi ngement on the subarticular recess bilaterally similar to previous. 3. Shallow central protrusion L6-S1 slightly progressed compared to previous w ith encroachment on the S1 nerve roots. 4. Mild central canal stenosis L4-5 with slight impingement RIGHT subarticular recess appears stable. 5. Small bilateral foraminal protrusions L4-5 worse in the RIGHT similar to pr evious with slight contact of the exiting RIGHT greater than LEFT L4 nerve root s.
== END 2024-12-12 12:39 | disposition home or self-care (01) ==
LOC: RAD 12:40
PROVIDERS: PCP Family Medicine; Visit Provider Orthopaedic Surgery
DX: M48.062 Spinal stenosis, lumbar region with neurogenic claudication (principal); M51.16 Intervertebral disc disorders with radiculopathy, lumbar region; M47.816 Spondylosis without myelopathy or radiculopathy, lumbar region
CPT/HCPCS: 72148

== ENCOUNTER → 2024-12-29 13:35 | Outpatient (BNVA) | payer MEDICARE, SELFPAY | PROVIDERS: PCP Family Medicine; Visit Provider Orthopaedic Surgery | DX: M48.062 Spinal stenosis, lumbar region with neurogenic claudication (principal); M47.816 Spondylosis without myelopathy or radiculopathy, lumbar region | CPT/HCPCS: 99214 ==

== ENCOUNTER → 2025-02-06 12:51 | Outpatient (BNVA) | payer MEDICARE, SELFPAY | PROVIDERS: PCP Family Medicine; Referring Provider Orthopaedic Surgery; Visit Provider Anesthesiology Pain Medicine | DX: M48.062 Spinal stenosis, lumbar region with neurogenic claudication (principal) | CPT/HCPCS: 99204 ==

== ENCOUNTER → 2025-03-01 13:45 | Outpatient (BNVA) | payer MEDICARE, SELFPAY | PROVIDERS: PCP Family Medicine; Visit Provider Anesthesiology Pain Medicine | DX: M47.816 Spondylosis without myelopathy or radiculopathy, lumbar region (principal) | CPT/HCPCS: 64493; 64494; 64495; J3490; J9999 ==

== ENCOUNTER → 2025-03-14 09:47 | Outpatient (BNVA) | payer MEDICARE, SELFPAY | PROVIDERS: PCP Family Medicine; Visit Provider Anesthesiology Pain Medicine | DX: M48.062 Spinal stenosis, lumbar region with neurogenic claudication (principal); F17.200 Nicotine dependence, unspecified, uncomplicated | CPT/HCPCS: 99214 ==